=== PATIENT | female | born 1995 | race Caucasian/White ===

== ENCOUNTER 2017-05-25 16:58 | Observation (INO) | payer BC, MEDICAID ==
[~2017-05-25] VITALS: Ht 152.4 cm; Wt 82.6 kg
[~2017-05-25 16:58] MED LIST: AMOXICILLIN500 M2 PO; CRYSELLE 30 MCG1 TAB PO; IRON TABLETS325 MG PO; LABETALOL 100M100 M1 PO; MACROBID 100MG100 MG PO; NAPROSYN500 M1 PO; PRENATAL PLUS1 TA1 PO
[2017-05-25 17:05] VITALS: BP 127/82
[2017-05-25 17:56] LABS: URINE BILIRUBIN - DIPSTICK NEGATIVE (NEG); URINE BLOOD 1+ (NEG)
[2017-05-25 18:21] LABS: AMPHETAMINES/METAMPHETAMINES NEGATIVE ng/mL (<1000)
[2017-05-25 18:22] LABS: URINE SQUAMOUS CELLS 20-50 #/hpf (0-5)
[2017-05-25 19:29] LABS: HEMOGLOBIN 11.9 g/dL (12.2-16.2); LYMPH # 3.3 K/mm3 (0.7-4.5); LYMPH % 28.3 % (10-50.0)
[2017-05-25 22:42] VITALS: BP 129/89
[2017-05-26 08:05] VITALS: BP 116/84
--- NOTE | 2017-05-26 08:29 | ACUTE CARE PROGRESS NOTE (QUA) ---
Progress Notes Subjective Date 05/26/17 Time 0826 Note She seems to be doing a little better this morning. Her blood pressure is 120/ 84. She denies any headache, scotomata or epigastric pain. She is taking labetalol 100 mg twice a day. We are doing a 24-hour urine. Her blood work is all normal except for her uric acid which is elevated at 7.2. Her urine dip for protein is negative. Patient/family reports: feeling better, no complaints Objective Findings Last VS-Temp:98.0 B/P:129/89 Pulse:75 Resp:18 SaO2: Last weight lbs:182 oz:0 K.555 Method:Digital Scales Exam General appearance: normal appearance, alert, awake, no acute distress Neuro: normal exam, normal reflexes, no clonus Reviewed: vital signs, lab results Assessment/Plan Problem List 1. induced hypertension, antepartum Patient condition Stable Plan: continue current care, initiate discharge plan This inpt stay is expected to cross 2 MNs from start of care No Comments: Her uric acid is slightly elevated we are waiting a 24 urine. She will follow up in my office in 48 hours for another blood pressure check. We will plan to send her home this morning. We will continue her 24-hour urine. I suspect that she will be induced in the next few days. She was given the warning symptoms of worsening presents induced hypertension. at 0818
--- NOTE | 2017-05-26 08:32 | Discharge Summary ---
Discharge Summary Admission date: 05/25/17 Discharge date: 05/26/17 Discharge diagnoses: Labile hypertension, mild -induced hypertension Clinical note: She is a 22-year-old 1 para 0 who was 37 weeks gestational age. She had elevated blood pressure in Dr. Oden's office and was admitted overnight for observation. Course in hospital: She was observed overnight and I elected to stop her magnesium sulfate since her blood pressure was 120 over 80s. She denies any headache, scotomata or epigastric pain. She is taking labetalol 100 mg twice a day. I suspect she has some labile hypertension with some underlying induced hypertension as well. We are awaiting a 24-hour urine. Her uric acid was elevated at 7.2 by the rest of her labs were completely normal. Her reflexes are normal and there is no clonus. Plans for ongoing care: We will plan to send her home on bed rest for the next couple of days. I'll see her in the office in 48 hours time. She will continue with her labetalol at home. She was given the warning symptoms of worsening -induced hypertension. We will plan to deliver her within the next week. Discharge medications She'll continue with her vitamins and iron. She will continue with labetalol 100 mg twice a day. DC/follow-up instructions She was given instructions to follow-up with me in 48 hours time. She was given instructions to remain on bedrest. Condition at discharge Stable and improved at 0831
--- OUTSIDE RECORDS SUMMARY | 2017-06-26 17:14 | External Medical Summary Rpt ---
Author Author , ALEXI TRUONG Address Unknown Phone [email or web address] Care Team Providers Care Concert Manager Name Role Phone DRAKE, DRAKE Unavailable Unavailable [facility] Unavailable Unavailable DEPARTMENT, [facility] DEPARTMENT [facility] Unavailable Unavailable DEPARTMENT, [facility] DEPARTMENT [facility] Unavailable Unavailable HOSPITAL, [facility] MISA, MISA Unavailable Unavailable [id number], Unavailable Unavailable [id number] JR ANAT, ANAT, Unavailable Unavailable JR THOMPSON TIN, JAY Unavailable Unavailable [facility] Un[facility] Unavailable INC, [facility] GLADIS NAN, GLADIS Unavailable Unavailable [facility] Un[facility] Unavailable [facility], [facility] LYND LEANNA, LYND LEANNA Unavailable Unavailable [facility] Unavailable Unavailable [facility] Unavailable Unavailable [facility] Unavailable Unavailable SERVICES, [facility] KATINA DMD ROMAN CATHOLIC, KATINA Unavailable Unavailable DMD ROM[facility] CATH[facility] KATINA DMD ROMAN CATHOLIC, KATINA Unavailable Unavailable DMD DANYELLE LUNA, Unavailable Unavailable DANYELLE KULKARNI [facility] Unavailable Unavailable URGENT TREAT, [facility], Unavailable Unavailable PLL, [facility], [facility] MONICA IFRAH, MONICA IFRAH Unavailable Unavailable [facility] Un[facility], [facility] Unavailable Unavailable [facility] Unavailable Unavailable [facility] Unavailable Unavailable [facility] Unavailable Unavailable DARLING FRANCO, SALVADOR, Unavailable Unavailable DARLING Last [facility], Unavailable Unavailable [facility] Purpose Continuity of Care Document - 02-21-2008 through 2016 Problems Code Diagnosis DOS Provider Status [id number] OTHER SPEC 12-25-2016 [facility] COND 2ND TRIMESTER R1032 LEFT LOWER 12-25-2016 [place] Z3A15 15 WEEKS 12-25-2016 [place] R102 PELVIC AND 10-01-2016 [facility] N940 MITTELSCHME 12-11-2016 [facility] M2012 ROSCOEUX 03-31-2016 [facility] LEFT FOOT [id number] PAIN IN 03-31-2016 [place] [facility] H5202 HYPERMETROP 03-06-2016 [facility] EYE [facility] Q28316 UNSPECIFIED 03-06-2016 [facility] ASTIGMATISM [facility] BILATERAL E162 HYPOGLYCEMI 03-03-2016 [facility] UNSPECIFIED URGENT TREAT M2011 HALLUX 03-03-2016 [facility] ACQUIRED URGENT RIGHT FOOT TREAT R42 DIZZINESS 03-03-2016 [facility] GIDDINESS URGENT TREAT R55 SYNCOPE AND 03-03-2016 [facility] URGENT TREAT H5213 MYOPIA 02-28-2016 [facility] B[facility] 56196 REFLUX 08-28-2014 [facility] ESOPHAGITIS 8409 SPRAIN&STRA 07-20-2013 [facility] IN UNSPEC EMERGENCY SITE SERVICES SHOULDER&UP PER ARM V2549 SURVEILLANC 06-21-2013 [facility] E OTH PREV HEALTH PRSC DEPARTMENT CONTRACEPT METHOD 462 ACUTE 06-02-2013 [facility] PHARYNGITIS 4779 ALLERGIC 06-02-2013 [facility] RHINITIS CAUSE UNSPECIFIED V655 PERSON 05-23-2013 [facility] W/FEARED HEALTH COMPLAINT DEPARTMENT WHOM NO DX WAS MADE 4660 ACUTE 05-19-2013 [facility] BRONCHITIS V1582 PERS HX 05-03-2013 [facility] TOBACCO USE HEALTH PRESENTING DEPARTMENT HAZARDS HEALTH V2541 SURVEILLANC 05-03-2013 [facility] E PREV HEALTH PRESCRIBED DEPARTMENT CONTRACEPT PILL V2689 OTHER 05-03-2013 [facility] SPECIFIED HEALTH PROCREATIVE DEPARTMENT MANAGEMENT V8530 BODY MASS 05-03-2013 [facility] INDEX HEALTH 30.0-30.9 DEPARTMENT ADULT 9953 ALLERGY 01-17-2013 [facility] UNSPECIFIED NOT ELSEWHERE CLASSIFIED 5990 URINARY 12-06-2012 [facility] TRACT INFECTION SITE NOT SPECIFIED 2724 OTHER AND 05-14-2012 [facility] UNSPECIFIED [facility] HYPERLIPIDE FRANKIE 89642 OTHER 05-14-2012 [facility] V202 ROUTINE 05-11-2012 [facility] CHILD [facility]ALTH CHECK V2501 GENERAL 04-13-2012 [facility] COUNSELING HEALTH PRESCRIPTIO DEPARTMENT N ORAL CONTRACEPTS 2662 OTHER 01-21-2011 [facility] B-COMPLEX HEALTH DEFICIENCIE DEPARTMENT S V069 NEED PROPH 01-21-2011 [facility] VACCINATION HEALTH W/UNSPEC DEPARTMENT COMB VACCINE 5210 DENTAL 12-05-2010 KATINA DMD CARIES ROMAN CATHOLIC 6260 ABSENCE OF 03-21-2009 SALVADOR MENSTRUATIO DARLING Last N 7061 OTHER ACNE 12-13-2008 DARLING FRANCO 0340 STREPTOCOCC 12-05-2008 ESTRELLITA [place] [facility] N39.0 URINARY TRACT INFECTION, SITE NOT SPECIFIED N94.0 MITTELSCHME RZ Medications Na ND Rx Da Fi Fi Am Da Di Ph RX Ph St me C No te ll ll ou ys ag ar # ys at rm s nt no ma ic us Or Da si cy ia de te s n re d NI 47 07 07 28 14 00 CA Ac TR 78 -0 -2 .0 00 RL ti OF 10 1- 1- 00 00 IS ve UR 30 20 20 77 LE AN 30 17 [address] IN UG S MO NO -M CR 10 0 MG PE 57 05 06 30 8 00 WA Ac NI 23 -3 -2 .0 00 L- ti CI 70 1- 3- 00 07 MA ve LL 04 20 20 41 RT IN 10 17 17 18 1 39 PH VK AR MA 50 CY 0 MG #4 93 TA BL ET IB 53 03 03 0 30 8 WI 36 WE Ac UP 74 -1 -1 .0 LS 58 LL ti RO 60 8- 8- 00 ON 02 S ve FE 46 20 20 CH N [address] AM 60 5 UG BE 0 RS MG IN C MO TA RG BL AN ET CL 63 03 03 0 56 28 WI 36 WE Ac IN 30 -0 -0 .0 LS 41 LL ti DA 40 3- 3- 00 ON 12 S ve MY 69 20 20 CH CI [address] AM N 1 UG BE HC RS L IN 15 C MO 0 RG MG AN CA PS UL E 00 02 02 0 15 4 WI 36 WE Ac 59 -1 -1 .0 LS 18 LL ti 10 1- 1- 00 ON 44 S ve 38 20 20 CH [address] AM 5 UG BE RS IN C MO RG AN PA 68 02 02 0 15 4 WI 36 WE Ac OM 38 -1 -1 .0 LS 18 LL ti ET 20 1- 1- 00 ON 40 S ve SMITH 04 20 20 CH ZI [address] AM NE 1 UG BE RS 25 IN C MO MG RG AN TA BL ET [place] 60 02 02 0 15 5 WI [address] 43 -1 -1 0. LS 18 LL ti AT 20 1- - 00 ON 41 S ve IN 53 20 20 0 CH [address] AM 10 6 UG BE 0, RS 00 IN 0 C MO UN RG IT AN /M L MAGAÑA SP AM 65 02 02 0 21 7 WI 36 WE Ac OX 86 -1 -1 .0 LS 18 LL ti IC 20 1- - 00 ON 42 S ve IL 01 20 20 CH LI [address] AM N 5 UG BE 50 RS 0 IN MG C MO RG CA AN PS UL E ME 59 02 02 0 21 6 WI 36 WE Ac TH 74 -1 -1 .0 LS 18 LL ti YL 60 1- 00 ON 43 S ve PA 00 20 20 CH ED [address] AM NI 3 UG BE SO RS LO IN NE C MO 4 RG AN MG DO SE PK 00 02 02 0 15 4 WI 36 WE Ac 59 -1 -1 .0 LS 18 LL ti 10 ON 44 S ve 38 20 20 CH [address] AM 5 UG BE RS IN C MO RG AN DO 00 03 04 00 60 30 WI 26 WE Ac XY 14 -2 -[address] ti CY 33 6- 9- 00 ON 84 ve CL 14 20 20 MU IN [address] RR E 5 UG AY HY D CL IN AT C E 10 0 MG CA P 00 03 04 00 50 10 WI 26 WE Ac 06 -2 -0 [address] ti 60 6- 9- 00 ON 83 ve 49 20 20 MU [address] RR 0 UG AY D IN C AM 66 03 03 00 20 10 WI 26 FE Ac OX 68 -1 -2 .0 LS 38 RR ti -C 51 8- 6- 00 ON 19 EL ve LA 00 20 20 L V [address] JA 87 1 UG ME 5- S 12 IN L 5 C MG TA BL ET PE 00 12 01 59 7 CV 49 WE Ac RM 47 -1 -[address] ti ET 25 4- 5- 00 PH 78 ve HR 24 20 20 AR MU IN 26 08 09 MA RR 7 CY AY 1% D #3 LO 01 TI 6 ON PE 00 12 01 00 59 7 CV 49 WE Ac RM 47 -1 -[address] ti ET 25 4- 1- 00 PH 78 ve HR 24 20 20 AR MU IN 26 08 09 MA RR 7 CY AY 1% D #3 LO 01 TI 6 ON ER 45 10 11 00 46 17 WI 24 WE Ac YT 80 -2 -0 [address] ti HR 20 1- 7- 00 ON 41 ve OM 08 20 20 MU YC [address] RR IN 6 UG AY -B D EN IN ZO C YL GE L 00 10 11 00 60 30 WI 24 WE Ac 07 -2 -0 [address] ti 46 1- 7- 00 ON 43 ve 32 20 20 MU [address] RR 3 UG AY D IN C 00 11 09 03 50 25 WI 20 No Ac 06 -1 -2 .0 LS 99 t ti 60 2- 6- 00 ON 70 Av ve 49 20 20 ai [address] la 0 UG bl e IN C 00 11 07 02 50 25 WI 20 No Ac 06 -1 -0 .0 LS 99 t ti 60 2- 3- 00 ON 70 Av ve 49 20 20 ai [address] la 0 UG bl e IN C TE 00 11 07 02 60 30 WI 20 No Ac TR 17 -1 -0 .0 LS 99 t ti AC 22 2- 3- 00 ON 69 Av ve YC 40 20 20 ai LI [address] la NE 0 UG bl e 50 IN 0 C MG CA PS UL E Results Labs Lab Lab Date Result Refere Interp Status Commen Order Detail nces retati t Range on Urinalysis dipstick W Reflex Microscopic panel in Urine (06-01-2017 08:20) Bacteri OCC O complet a 017 ed [Presen 08:20 ce] in Urine sedimen t by Light microsc opy Erythro NONE 0 complet cytes 017 ed [Presen 08:20 ce] in Urine sedimen t by Light microsc opy Epithel OCC 0#/hp complet ial 017 f - ed cells.s 08:20 5#/hp quamous f [Presen ce] in Urine sedimen t by Microsc opy high power field Urinalysis dipstick W Reflex Microscopic panel in Urine (06-01-2017 08:20) Appeara CLEAR CLEAR complet nce of 017 ed Urine 08:20 Bilirub NEGATIV NEG complet in 017 E ed [Presen 08:20 ce] in Urine by Test strip Erythro NEGATIV NEG complet cytes 017 E ed [Presen 08:20 ce] in Urine Color STRAW YELLOW complet of 017 ed Urine 08:20 Ketones NEGATIV NEG complet 017 E ed [Presen 08:20 ce] in Urine by Automat ed test strip Mucus NEGATIV NEG complet [Presen 017 E ed ce] in 08:20 Urine sedimen t by Light microsc opy Nitrite NEGATIV NEG complet 017 E ed [Presen 08:20 ce] in Urine by Test strip Urobili 0.2 NEG complet nogen 017 ed [Presen 08:20 ce] in Urine by Test strip Urinalysis dipstick W Reflex Microscopic panel in Urine (06-01-2017 06:39) Bacteri 4+ O complet a 017 ed [Presen 06:39 ce] in Urine sedimen t by Light microsc opy Epithel 5-10 0#/hp complet ial 017 f - ed cells.s 06:39 5#/hp quamous f [Presen ce] in Urine sedimen t by Microsc opy high power field Leukocy 10-20 O complet remigio 017 wbc/hpf ed [#/volu 06:39 me] in Urine Urinalysis dipstick W Reflex Microscopic panel in Urine (06-01-2017 06:39) Appeara SL CLEAR complet nce of 017 CLOUDY ed Urine 06:39 Bilirub NEGATIV NEG complet in 017 E ed [Presen 06:39 ce] in Urine by Test strip Erythro NEGATIV NEG complet cytes 017 E ed [Presen 06:39 ce] in Urine Color DK YELLOW complet of 017 YELLOW ed Urine 06:39 Ketones NEGATIV NEG complet 017 E ed [Presen 06:39 ce] in Urine by Automat ed test strip Mucus NEGATIV NEG complet [Presen 017 E ed ce] in 06:39 Urine sedimen t by Light microsc opy Nitrite NEGATIV NEG complet 017 E ed [Presen 06:39 ce] in Urine by Test strip Urobili 0.2 NEG complet nogen 017 ed [Presen 06:39 ce] in Urine by Test strip Drugs identified in Urine by Screen method (06-01-2017 06:39) Ampheta NEGATIV <1000 complet mine 017 E ed [Presen 06:39 ce] in Urine by Screen method 11-Hydr NEGATIV <50 complet oxy 017 E ed delta-9 06:39 tetrahy drocann abinol [Presen ce] in Unspeci fied specime n Blood type & Indirect antibody screen panel in Blood (06-01-2017 04:30) Blood NEGATIV NEGATIV complet group 017 E E ed antibod 04:30 y screen [Presen ce] in Serum or Plasma Rh POSITIV complet [Type] 017 E ed in 04:30 Blood ABO O complet group 017 ed [Type] 04:30 in Blood Urinalysis dipstick W Reflex Microscopic panel in Urine (05-25-2017 17:50) Bacteri 3+ O complet a 017 ed [Presen 17:50 ce] in Urine sedimen t by Light microsc opy Erythro 10-20 0 complet cytes 017 ed [Presen 17:50 ce] in Urine sedimen t by Light microsc opy Epithel 20-50 0#/hp complet ial 017 f - ed cells.s 17:50 5#/hp quamous f [Presen ce] in Urine sedimen t by Microsc opy high power field Leukocy 10-20 O complet remigio 017 wbc/hpf ed [#/volu 17:50 me] in Urine Drugs identified in Urine by Screen method (05-25-2017 17:50) Ampheta NEGATIV <1000 complet mine 017 E ed [Presen 17:50 ce] in Urine by Screen method 11-Hydr NEGATIV <50 complet oxy 017 E ed delta-9 17:50 tetrahy drocann abinol [Presen ce] in Unspeci fied specime n Urinalysis dipstick W Reflex Microscopic panel in Urine (05-25-2017 17:50) Appeara SL CLEAR complet nce of 017 CLOUDY ed Urine 17:50 Bilirub NEGATIV NEG complet in 017 E ed [Presen 17:50 ce] in Urine by Test strip Erythro 1+ NEG Abnorma complet cytes 017 l ed [Presen 17:50 ce] in Urine Color YELLOW YELLOW complet of 017 ed Urine 17:50 Ketones NEGATIV NEG complet 017 E ed [Presen 17:50 ce] in Urine by Automat ed test strip Mucus 2+ NEG Abnorma complet [Presen 017 l ed ce] in 17:50 Urine sedimen t by Light microsc opy Nitrite NEGATIV NEG complet 017 E ed [Presen 17:50 ce] in Urine by Test strip Urobili 0.2 NEG complet nogen 017 ed [Presen 17:50 ce] in Urine by Test strip Blood type & Indirect antibody screen panel in Blood (05-14-2017 17:25) Blood 05-14- NEGATIV NEGATIV complet group 017 E E ed antibod 17:25 y screen [Presen ce] in Serum or Plasma Rh POSITIV complet [Type] 017 E ed in 17:25 Blood ABO 05-14-2 O complet group 017 ed [Type] 17:25 in Blood Drugs identified in Urine by Screen method (05-14-2017 16:51) Ampheta 05-14-2 NEGATIV <1000 complet mine 017 E ed [Presen 16:51 ce] in Urine by Screen method 11-Hydr 05-14-2 NEGATIV <50 complet oxy 017 E ed delta-9 16:51 tetrahy drocann abinol [Presen ce] in Unspeci fied specime n Drugs identified in Urine by Screen method (03-20-2017 10:15) Ampheta 03-20-2 NEGATIV <1000 complet mine 017 E ed [Presen 10:15 ce] in Urine by Screen method 11-Hydr 2 NEGATIV <50 complet oxy 017 E ed delta-9 10:15 tetrahy drocann abinol [Presen ce] in Unspeci fied specime n Urinalysis dipstick W Reflex Microscopic panel in Urine (03-20-2017 10:15) Bacteri 4+ O complet a 017 ed [Presen 10:15 ce] in Urine sedimen t by Light microsc opy Mucus 3+ OCC complet [Presen 017 ed ce] in 10:15 Urine sedimen t by Light microsc opy Erythro OCC 0 complet cytes 017 ed [Presen 10:15 ce] in Urine sedimen t by Light microsc opy Epithel 20-50 0#/hp complet ial 017 f - ed cells.s 10:15 5#/hp quamous f [Presen ce] in Urine sedimen t by Microsc opy high power field Leukocy 10-20 O complet remigio 017 wbc/hpf ed [#/volu 10:15 me] in Urine Urinalysis dipstick W Reflex Microscopic panel in Urine (03-20-2017 10:15) Appeara SL CLEAR complet nce of 017 CLOUDY ed Urine 10:15 Bilirub NEGATIV NEG complet in 017 E ed [Presen 10:15 ce] in Urine by Test strip Erythro TRACE-I NEG complet cytes 017 NTACT ed [Presen 10:15 ce] in Urine Color YELLOW YELLOW complet of 017 ed Urine 10:15 Ketones NEGATIV NEG complet 017 E ed [Presen 10:15 ce] in Urine by Automat ed test strip Mucus 1+ NEG Abnorma complet [Presen 017 l ed ce] in 10:15 Urine sedimen t by Light microsc opy Nitrite NEGATIV NEG complet 017 E ed [Presen 10:15 ce] in Urine by Test strip Urobili 0.2 NEG complet nogen 017 ed [Presen 10:15 ce] in Urine by Test strip Glucose [Presence] in Urine by Test strip --1 hour post 75 g glucose PO (03-01-2017 15:47) Glucose NEGATIV complet 017 E ed [Presen 15:47 ce] in Urine by Test strip Treponema pallidum IgG Ab [Presence] in Serum by Immunoassay (05-09-2013 16:30) Trepone NON-GIA complet ma 013 CTIVE ed pallidu 16:30 m IgG Ab [Presen ce] in Serum by Immunoa ssay Treponema pallidum IgG Ab [Presence] in Serum by Immunoassay (05-09-2013 16:30) COLLECT C3974 complet OR 013 ed 16:30 ETHNICI WHITE complet TY 013 ed 16:30 PURPOSE DIAGNOS complet OF 013 TIC ed EXAM 16:30 SPECIME BLOOD complet N 013 ed SOURCE 16:30 CHART NA complet NUMBER 013 ed 16:30 Trepone Pending complet ma 013 ed pallidu 16:30 m IgG Ab [Presen ce] in Serum by Immunoa ssay CHLAMYDIA AND GONORRHEA TESTING (05-03-2013 09:10) Chlamyd POSITIV complet ia 013 E ed trachom 09:10 atis rRNA [Presen ce] in Unspeci fied specime n by Probe & target amplifi cation method Neisser NEGATIV complet ia 013 E ed gonorrh 09:10 oeae rRNA [Presen ce] in Unspeci fied specime n by Probe & target amplifi cation method CHLAMYDIA AND GONORRHEA TESTING (05-03-2013 09:10) COLLECT C3819 complet OR 013 ed 09:10 ETHNICI WHITE, complet TY 013 NON-HIS ed 09:10 PANIC KIT 08-19-2 complet EXPIRAT 013 013 ed ION 09:10 DATE SYMPTOM NO complet S 013 ed 09:10 REASON REVISIT complet FOR 013 /ANNUAL ed REQUEST 09:10 FAMILY PLANNIN G VISIT SPECIME URINE complet N 013 ed SOURCE 09:10 PREGNAN NO complet T 013 ed 09:10 CHART N/A complet NUMBER 013 ed 09:10 Chlamyd Pending complet ia 013 ed trachom 09:10 atis rRNA [Presen ce] in Unspeci fied specime n by Probe & target amplifi cation method Neisser Pending complet ia 013 ed gonorrh 09:10 oeae rRNA [Presen ce] in Unspeci fied specime n by Probe & target amplifi cation method CHLAMYDIA AND GONORRHEA TESTING (04-13-2012 15:40) Chlamyd NEGATIV complet ia 012 E ed trachom 15:40 atis rRNA [Presen ce] in Unspeci fied specime n by Probe & target amplifi cation method Neisser NEGATIV complet ia 012 E ed gonorrh 15:40 oeae rRNA [Presen ce] in Unspeci fied specime n by Probe & target amplifi cation method CHLAMYDIA AND GONORRHEA TESTING (04-13-2012 15:40) COLLECT C3819 complet OR 012 ed 15:40 ETHNICI WHITE, complet TY 012 NON-HIS ed 15:40 PANIC KIT 06/2012 complet EXPIRAT 012 ed ION 15:40 DATE SYMPTOM NO complet S 012 ed 15:40 REASON REVISIT complet FOR 012 /ANNUAL ed REQUEST 15:40 FAMILY PLANNIN G VISIT SPECIME URINE complet N 012 ed SOURCE 15:40 PREGNAN NO complet T 012 ed 15:40 CHART N/A complet NUMBER 012 ed 15:40 Chlamyd Pending complet ia 012 ed trachom 15:40 atis rRNA [Presen ce] in Unspeci fied specime n by Probe & target amplifi cation method Neisser Pending complet ia 012 ed gonorrh 15:40 oeae rRNA [Presen ce] in Unspeci fied specime n by Probe & target amplifi cation method Procedures [place] [address] [place] [facility] 7 MEDICAL UTERUS IMAGING LIMITED ASS 1/> [place] [address] [place] [facility]KE TRANSVAGI 7 MEDICAL NAL IMAGING ASS RADEX 34917 [facility] COMPLETE INC INC MINIMUM 3 VIEWS FRAMES V2020 [facility] PURCHASES 6 [place] [facility] SPHERE V2100 [facility] SINGLE 6 [place] [facility] [place] [facility] 4.00 PER LENS RADEX 19101 [facility] COMPLETE INC INC MINIMUM 3 VIEWS OPHTH 10064 [facility] 6 XM&EVAL COMPRE NEW PT 1/> VST SERVICES 56355 [facility] PROVIDED 3 OFFICE OTH/THN REG SCHED HOURS IAADIADOO 34877 [facility] 3 STREPT[place] CCUS GROUP A IAADIADOO 49686 [facility] 3 STREPTOCO CCUS GROUP A CONTRACEP A4267 [facility] TIVE 3 [facility] MALE EACH T T CONTRACEP S4993 [facility] [facility] [facility] 3 [facility] DE[facility] CONTROL T T IADNA 26127 [facility] [facility] CHLAMYDIA 3 MT [facility] IS T T AMPLIFIED PROBE TQ IADNA 00127 [place] NEISSERIA 3 MT Event[facility] AE T T AMPLIFIED PROBE TQ SERVICES 60065 [facility] PROVIDED 3 OFFICE OTH/THN REG SCHED HOURS URNLS DIP 13453 [facility] 3 STICK/TAB LET RGNT NON-AUTO W/O MICRSCP COMPREHEN 47887 ESTRELLITA HARO SIVE 2 [facility] PANEL LIPID 22632 [facility] [place] PANEL 2 [facility] BLOOD 51920 [facility] COUNT 2 [facility] AUTO&AUTO DIFRNTL WBC COLLECTIO 19420 ESTRELLITA HARO N VENOUS 2 [facility] VENIPUNCT URE IADNA 30419 [facility] NEISSERIA 2 [facility] AE T T AMPLIFIED PROBE TQ CONTRACEP S4993 [place] LYND LEANNA TIVE 2 [facility] DE[facility] CONTROL T IADNA 50217 [facility] CHLAMYDIA 2 [facility] DEPARTMEN IS T T AMPLIFIED PROBE TQ IAADIADOO 27661 [facility] 1 STREPTOCO CCUS GROUP A IADNA 25554 [place] NEISSERIA 1 [facility] AE T T AMPLIFIED PROBE TQ IM ADM 78504 [place] PRQ ID 1 [facility] SUBQ/IM NJXS 1 [facility] VACCINE T T CONTRACEP S4993 [place] TIVE 1 [facility] CONTROL T T IADNA 86498 [facility] CHLAMYDIA 1 [facility] [place] IV D9242 KATINA DMD KATINA DMD CONSCIOUS 1 ROMAN CATHOLIC ROMAN CATHOLIC SEDATION/ ANALG - EA ADD 15 MINUTES IV D9242 KATINA DMD KATINA DMD CONSCIOUS 1 ROMAN CATHOLIC ROMAN CATHOLIC SEDATION/ ANALG - EA ADD 15 MINUTES IAADIADOO 42348 [facility] 0 [place] CCUS GROUP A CONTRACEP S4993 [place] TIVE 0 [facility] CONTROL T T CHOLESTER 79479 [place] OL 0 [facility] SERUM/WHO LE BLOOD [facility] TOTAL T T GLUC BLD 83620 [place] GLUC MNTR 0 [facility] DEV CLEARED [facility] DEPARTMEN FDA SPEC T T HOME USE BLOOD 63332 [place] COUNT 0 [facility] HEMOGLOBI N DEPARTMEN DEPARTMEN T T IADNA 52733 [place] CHLAMYDIA 0 [facility]AT [facility] DEPARTMEN IS T T AMPLIFIED PROBE TQ IADNA 29218 [place] NEISSERIA 0 [facility]E [facility] DEPARTMEN AE T T AMPLIFIED PROBE TQ URINE 56808 [facility] [place] 9 [facility]ALTH [facility] TEST CENTRAL VISUAL BANK ACCT DEPARTMEN COLOR T CMPRSN METHS CONTRACEP A4267 [facility] [place] TIVE 9 HEALTH [facility] SUPPLY CENTRAL CONDOM BANK ACCT DEPARTMEN MALE EACH T CONTRACEP S4993 [facility] [place] TIVE 9 HEALTH [facility] HEALTH PILLS FOR SOMERSET BANK ACCT DEPARTMEN CONTROL T URINE 61419 [facility], 9 [place] Last TEST VISUAL COLOR CMPRSN METHS IAADIADOO 33061 [place] [address] [facility] CCUS GROUP A URINE 11103 [facility], 8 [place] Last TEST VISUAL COLOR CMPRSN METHS Encounters Encounter Start End Date Code Location Performer Type Date EMERGENCY 02966 STAN COP[place]A, 6 6 PHYSICIAN [facility] T VISIT HIGH/URGE NT SEVERITY [facility] - 6 6 [facility] - 6 6 [facility] T OFFICE 14884 DAVIAN GRIFFITH OUTPATIEN 6 6 [facility] 30 URGENT MINUTES TREAT OFFICE 25902 [facility] OUTPATIEN 4 4 T VISIT 15 MINUTES EMERGENCY 21212 YAZMIN THOMPSON 3 3 EMERGENCY [facility] T VISIT MODERATE SEVERITY OFFICE 93372 [facility] 15 DEPARTMEN DEPARTMEN MINUTES T T OFFICE 45746 [facility] 3 3 [facility] 10 [facility] DEPART[facility] MINUTES T T OFFICE 90613 [facility] OUTPATIEN 3 3 T VISIT 15 MINUTES PERIODIC 69256 [facility] PREVENTIV 3 3 [facility] EST [facility] T [facility] 19661 [facility] OUT[facility] 3 3 T NEW 30 MINUTES [facility] [place] - 2 2 [facility] T PERIODIC 69369 [facility] PREVENTIV 2 2 E MED EST PATIENT 12-17YRS PERIODIC 81427 [facility] 2 [facility]17[facility] T OFFICE 32950 [facility] OUT[facility] 1 1 T VISIT 15 MINUTES PERIODIC 06974 [facility] 1 [facility]17[facility] T OFF[facility] 24193 [facility] OUT[facility] 0 0 T NEW 30 MINUTES PERIODIC 18407 [facility] 12-17Y[facility] T T PERIODIC 84351 [facility] PREVENTIV 0 0 [place] Last E MED EST PATIENT 12-17YRS OFFICE 69792 [facility] 15 BANK ACCT DEPARTMEN MINUTES T OFFICE 69688 [facility] 9 9 [place] Last T VISIT 15 MINUTES OFFICE 11597 [facility] 9 9 [place] Last T VISIT 15 MINUTES EMERGENCY [address] [place] 9 9 [facility] T VISIT LOW/MODER SEVERITY EMERGENCY 30929 [facility], 9 9 [facility] VISIT PHYS INC MODERATE SEVERITY [facility]OSP[facility] [place] - 9 9 [facility] T OFFICE 52830 [facility] 8 8 [place] Last T VISIT 15 MINUTES OFFICE 85620 [facility] 8 8 [place] Last T VISIT 15 MINUTES
--- OUTSIDE RECORDS SUMMARY | 2017-06-26 17:14 | External Medical Summary Rpt ---
Author Author , ALEXI TRUONG Address Unknown Phone [email or web address] Care Team Providers Care Veterinary Practice Manager Name Role Phone DRAKE, DRAKE Unavailable Unavailable [facility] Unavailable Unavailable DEPARTMENT, [facility] DEPARTMENT [facility] Unavailable Unavailable DEPARTMENT[facility] DEPARTMENT [facility] Unavailable Unavailable HOSPITAL, [facility] MISA, MISA Unavailable Unavailable [id number], Unavailable Unavailable [id number] JR ANAT, ANAT, Unavailable Unavailable JR THOMPSON TIN, JAY Unavailable Unavailable [facility] Unavailable Unavailable INC, [facility] GLADIS NAN, GLADIS Unavailable Unavailable [facility] Unavailable [facility], [facility] LYND LEANNA, LYND LEANNA Unavailable Unavailable [facility] Unavailable Unavailable [facility] Unavailable Unavailable [facility] Unavailable Unavailable SERVICES, [facility] KATINA DMD JUDAISM, KATINA Unavailable Unavailable DMD JUDAISM KATINA DMD JUDAISM, KATINA Unavailable Unavailable DMD DANYELLE LUNA, Unavailable Unavailable DANYELLE KULKARNI [facility] Unavailable Unavailable URGENT TREAT, [facility], Unavailable Unavailable PLL, [facility], [facility] MONICA IFRAH, MONICA IFRAH Unavailable Unavailable [facility] Unavailable Un[facility], [facility], [facility] Unavailable Unavailable [facility] Unavailable Unavailable [facility] Unavailable Unavailable [facility] Unavailable Unavailable [place] FRANCO, SALVADOR, Unavailable Unavailable [place] Last [facility], Unavailable Unavailable [facility] Purpose Continuity of Care Document - 02-21-2008 through 2016 Problems Code Diagnosis DOS Provider Status [id number] OTHER SPEC 12-25-2016 [facility] COND 2ND TRIMESTER R1032 LEFT LOWER 12-25-2016 [facility] [facility] Z3A15 15 WEEKS 12-25-2016 [facility] [facility] R102 PELVIC AND 10-01-2016 [facility] N940 MITTELSCHME 12-11-2016 [facility] M2012 CERESUX 03-31-2016 [facility] LEFT FOOT H84402 PAIN IN 03-31-2016 [place] [facility] H5202 HYPERMETROP 03-06-2016 [facility] [place] LEFT EYE [facility] W03280 UNSPECIFIED 03-06-2016 [facility]MAT[facility] BILATERAL E162 HYPOGLYCEMI 03-03-2016 DAVIAN Chapman [facility] UNSPECIFIED URGENT TREAT M2011 HALLUX 03-03-2016 [facility] ACQUIRED URGENT RIGHT FOOT TREAT R42 DIZZINESS 03-03-2016 [facility] GIDDINESS URGENT TREAT R55 SYNCOPE AND 03-03-2016 DAVIAN COLLAPSE [facility] URGENT TREAT H5213 MYOPIA 02-28-2016 YAZMIN BILATERAL 78350 REFLUX 08-28-2014 [facility] ESOPHAGITIS 8409 SPRAIN&STRA [...] SITE NOT SPECIFIED 2724 OTHER AND 05-14-2012 [facility] UNSPECIFIED [facility] HYPERLIPIDE FRANKIE 29713 OTHER 05-14-2012 PSYCHIATRIC V202 ROUTINE 05-11-2012 [facility] INFANT OR CHILD HEALTH CHECK V2501 GENERAL 04-13-2012 [facility] [facility] PRESCRIPTIO DEPARTMENT N ORAL CONTRACEPTS 2662 OTHER 01-21-2011 [place] B-COMPLEX HEALTH DEFICIENCIE DEPARTMENT S V069 NEED PROPH 01-21-2011 [place] [facility] VACCINATION [facility]ALTH W/UNSPEC DEPARTMENT COMB VACCINE 5210 DENTAL 12-05-2010 KATINA DMD CARIES JUDAISM 6260 ABSENCE OF 03-21-2009 SALVADOR MENSTRUATIO [place] Last N 7061 OTHER ACNE 12-13-2008 [place] FRANCO 0340 STREPTOCOCC 12-05-2008 ESTRELLITA AL [facility] N39.0 URINARY TRACT INFECTION, SITE NOT SPECIFIED [...] BE RS IN C MO RG AN MO 68 02 02 0 15 4 WI [...] 60 1- 00 ON 43 S ve MO 00 20 20 CH ED 10 11 [...] Procedure [place] [address] [facility] M[facility] 7 MEDICAL UTERUS IMAGING LIMITED ASS 1/> [place] [address] [facility] DRAKE [facility]SVAGI 7 MEDICAL NAL IMAGING ASS RADEX 33436 [facility] COMPLETE INC INC MINIMUM 3 VIEWS FRAMES V2020 [facility] MONICA IFRAH PURCHASES 6 [place] [facility] SPHERE V2100 [facility] MONICA IFRAH SINGLE 6 [place] [facility] [place] [facility] 4.00 PER LENS RADEX 20203 [facility] COMPLETE INC INC MINIMUM 3 VIEWS OPHTH 09700 [facility] 6 XM&EVAL COMPRE NEW PT 1/> VST SERVICES 00357 [facility] PROVIDED 3 OFFICE OTH/THN REG SCHED HOURS IAADIADOO 30446 [facility] 3 STREPTOCO CCUS GROUP A IAADIADOO 22258 [facility] 3 STREPTOCO CCUS GROUP A CONTRACEP A4267 [facility] TIVE 3 ID [facility] ID HEALTH SUPPLY CONDOM [facility]PARTMER[facility] MALE EACH T T CONTRACEP S4993 [place] TIVE 3 ID [facility] ID HEALTH PILLS FOR DEPARTMERIT HEALTH [facility]ANK[facility] DEPARTMERIT HE[facility] RANKIN CONTROL T T IADNA 13095 [place] CHLAMYDIA 3 ID [facility] HEALTH TRACHOMAT DEPARTMERIT [facility]ANK[facility] DEPARTMERIT HE[facility] RANKIN IS T T AMPLIFIED PROBE TQ IADNA 49068 [place] NEISSERIA 3 ID [facility] GONORRHOE DEPARTMERIT HEALTH RANKIN DEPARTMERIT HEALTH RANKIN AE T T AMPLIFIED PROBE TQ SERVICES 98529 [facility] PROVIDED 3 OFFICE OTH/THN REG SCHED HOURS URNLS DIP 80205 [facility] 3 STICK/TAB LET RGNT NON-AUTO W/O MICRSCP COMPREHEN 49705 [facility] HARO SIVE 2 [facility] PANEL LIPID 35232 [place] PANEL 2 [facility] BLOOD 89558 [place] ARNOL[place] COUNT 2 [facility] AUTO&AUTO DIFRNTL WBC COLLECTIO 54601 [facility] HARO N VENOUS 2 [facility] VENIPUNCT URE IADNA 97850 [place] NEISSERIA 2 [facility] DEPARTMEN DEPARTMERIT HEALTH RANKIN AE T T AMPLIFIED PROBE TQ CONTRACEP S4993 [place] LYND LEANNA TIVE 2 [facility] P[facility]S FOR DEPARTMEN CONTROL T IADNA 54643 [place] CHLAMYDIA 2 [facility] TRACHOMAT DEPARTMERIT [facility]ANKIN DEPARTMEN IS T T AMPLIFIED PROBE TQ IAADIADOO 07487 [facility] 1 STREPT[place]O CCUS GROUP A IADNA 34019 [place] NEISSERIA 1 [facility] GONORRHOE DEPARTMERIT HEALTH RANKIN DEPARTMERIT HE[facility] RANKIN AE T T AMPLIFIED PROBE TQ IM ADM 60455 [place] PRQ ID 1 [facility] SUBQ/IM NJXS 1 [facility] VACCINE T T CONTRACEP S4993 [place] TIVE 1 [facility] PILLS FOR DEPARTMERIT HEALTH RANKIN DEPARTMERIT HEALTH RANKIN CONTROL T T IADNA 86156 [place] CHLAMYDIA 1 [facility] TRACHOMAT DEPARTMER[facility]ANKIN DEPARTMERIT HEALTH RANKIN IS [place] IV D9242 KATINA DMD AKTINA DMD CONSCIOUS 1 JUDAISM JUDAISM SEDATION/ ANALG - EA ADD 15 MINUTES IV D9242 KATINA DMD KATINA DMD CONSCIOUS 1 JUDAISM JUDAISM SEDATION/ ANALG - EA ADD 15 MINUTES IAADIADOO 55641 [facility] 0 [place] CCUS GROUP A CONTRACEP S4993 [place] TIVE 0 [facility] PILLS FOR DEPARTMERIT HEALTH RANKIN DEPARTMERIT HE[facility] RANKIN CONTROL T T CHOLESTER 10761 [place] OL 0 [facility] SERUM/WHO LE BLOOD [facility] DEPARTMER[facility] TOTAL T T GLUC BLD 68301 [place] GLUC MNTR 0 [facility] DEV CLEARED DEPARTMERIT [facility] RANKIN DEPARTMEN FDA SPEC T T HOME USE BLOOD 72042 [place] COUNT 0 [facility] HEMOGLOBI N DEPARTMEN DEPARTMEN T T IADNA 76346 [place] CHLAMYDIA 0 [facility] TRACHOMAT DEPARTMERIT HEALTH RANKIN DEPARTMEN IS T T AMPLIFIED PROBE TQ IADNA 75840 [place] NEISSERIA 0 [facility] GONORRHOE DEPARTMERIT HEALTH RANKIN DEPARTMEN AE T T AMPLIFIED PROBE TQ URINE 34783 [facility] [place] 9 HEALTH CO HEALTH TEST CENTRAL VISUAL BANK ACCT DEPARTMEN COLOR T CMPRSN METHS CONTRACEP A4267 [facility] [place] TIVE 9 HEALTH CO HEALTH SUPPLY CENTRAL CONDOM BANK ACCT DEPARTMEN MALE EACH T CONTRACEP S4993 [facility] [place] TIVE 9 HEALTH CO HEALTH PILLS FOR STURGEON BANK ACCT DEPARTMEN CONTROL T URINE 66583 [facility], 9 [place] Last TEST VISUAL COLOR CMPRSN METHS IAADIADOO 98624 [place] 9 [facility] CCUS GROUP A URINE 89563 [facility], 8 [place] Last TEST VISUAL COLOR CMPRSN METHS Encounters Encounter Start End Date Code Location Performer Type Date EMERGENCY 98859 STAN [facility]A, 6 6 PHYSICIAN [facility] S, [facility] T VISIT HIGH/URGE NT SEVERITY [facility]OSPITAL [facility] - 6 6 [facility] MED[facility] - 6 6 [facility] T OFFICE 57003 DAVIAN GRIFFITH OUTPATIEN 6 6 [facility] NAN NEW 30 URGENT MINUTES TREAT OFFICE 63665 [facility] MUR OUTPATIEN 4 4 T VISIT 15 MINUTES EMERGENCY 55910 YAZMIN THOMPSON 3 3 EMERGENCY [facility] T VISIT MODERATE SEVERITY OFFICE 62265 [place] OUTPATIEN 3 3 [facility]ALTH T VISIT 15 DEPARTMEN DEPARTMEN MINUTES T T OFFICE 09255 [place] OUTPATIEN 3 3 [facility] T VISIT 10 [facility] DEPARTMEN MINUTES T T OFFICE 82075 [facility] MUR OUTPATIEN 3 3 T VISIT 15 MINUTES PERIODIC 67261 [place] PREVENTIV 3 3 ID [facility] E MED EST [facility] 18-39 [facility] T T OFFICE 51781 [facility] OUTPATIEN 3 3 T NEW 30 MINUTES HOSPITAL [place] - 2 2 [facility] [place] T PERIODIC 88140 [facility] MUR PREVENTIV 2 2 E MED EST PATIENT 12-17YRS PERIODIC 37425 [place] PREVENTIV 2 2 ID HEALTH ID HEALTH E MED EST [facility] 12-17Y[facility] T T OFFICE 19903 [facility] OUTPATIEN 1 1 T VISIT 15 MINUTES PERIODIC 71577 [place] PREVENTIV 1 1 ID HEALTH ID HEALTH E MED EST [facility] 12[facility]17Y[facility] T T OFFICE 60514 [facility] OUTPATIEN 0 0 T NEW 30 MINUTES PERIODIC 13707 [facility] PREVENTIV 0 0 ID HEALTH ID HEALTH E MED EST [facility] 12-17[facility] T T PERIODIC 90709 [facility], PREVENTIV 0 0 [place] Last E MED EST PATIENT 12-17YRS OFFICE 77022 [facility] 9 9 HEALTH ID HEALTH T VISIT CENTRAL 15 BANK ACCT DEPARTMEN MINUTES T OFFICE 86968 [facility] 9 9 [place] Last T VISIT 15 MINUTES OFFICE 45456 [facility] 9 9 [place] Last T VISIT 15 MINUTES EMERGENCY 31835 [place] 9 9 [facility] T VISIT LOW/MODER SEVERITY EMERGENCY 06870 [facility], 9 9 [facility] T VISIT PHYS INC MODERATE SEVERITY [facility]OSP[facility] [place] - 9 9 [facility] [place] T OFFICE 83213 [facility] 8 8 [place] Last T VISIT 15 MINUTES OFFICE 67489 [facility] 8 8 [place] Last T VISIT 15 MINUTES
--- OUTSIDE RECORDS SUMMARY | 2017-06-26 17:16 | External Medical Summary Rpt ---
Author Author , ALEXI TRUONG Address Unknown Phone [email or web address] Immunization Name Date Rout CVX Reac Dose Comm Prov Is Faci e tion ent ider Refu lity Give sed n Infl 01-1 150 0.5 Hist [facility] No [facility] uenz 4-20 mL oric ART4 ART4 a 17 al 93 93 Quad Info Inj rmat ion - Sour ce Unsp ecif ied HPV4 05-0 62 999 Hist H109 No H109 4-20 oric (Gar 11 al dasi Info l) rmat ion - Sour ce Unsp ecif ied HPV4 05-0 62 999 Hist H109 No H109 5-20 oric (Gar 10 al dasi Info l) rmat ion - Sour ce Unsp ecif ied MCV4 07-1 147 999 Hist H109 No H109 UF 2-20 oric 07 al Info rmat ion - Sour ce Unsp ecif ied Tdap 07-1 115 999 Hist H109 No H109 , 2-20 oric Adso 07 al rbed Info rmat ion - Sour ce Unsp ecif ied MMR 07-2 3 999 Hist H109 No H109 3-19 oric 99 al Info rmat ion - Sour ce Unsp ecif ied DTaP 07-2 107 999 Hist H109 No H109 , UF 3-19 oric 99 al Info rmat ion - Sour ce Unsp ecif ied Santino 07-2 2 999 Hist H109 No H109 o-OP 3-19 oric V 99 al Info rmat ion - Sour ce Unsp ecif ied DTaP 09-0 Intr 107 999 Hist H109 No H109 , UF 3-19 amus oric 97 cula al r Info rmat ion - Sour ce Unsp ecif ied Hib, 09-0 17 999 Hist H109 No H109 UF 3-19 oric 97 al Info rmat ion - Sour ce Unsp ecif ied
--- OUTSIDE RECORDS SUMMARY | 2017-06-26 17:16 | External Medical Summary Rpt ---
Author Author , ALEXI TRUONG Address Unknown Phone [email or web address] Care Team Providers Care Aviation Mechanic Name Role Phone DRAKE, DRAKE Unavailable Unavailable [facility] Unavailable Unavailable DEPARTMENT, [facility] DEPARTMENT [facility] Unavailable Unavailable DEPARTMENT, [facility] DEPARTMENT [facility] Unavailable Unavailable HOSPITAL, [facility] MISA, MISA Unavailable Unavailable [facility], Unavailable Unavailable [facility] JR ANAT, ANAT, Unavailable Unavailable GREISER TIN, GREISER Unavailable Unavailable [facility] Un[facility] Unavailable INC, [facility] GLADIS NAN, GLADIS Unavailable Unavailable [facility] Unavailable Unavailable [facility], [facility] LYND LEANNA, LYND LEANNA Unavailable Unavailable [facility] Unavailable Unavailable [facility] Unavailable Unavailable [facility] Unavailable Unavailable SERVICES, [facility] KATINA DMD QUAKER, KATINA Unavailable Unavailable DMD QUAKER KATINA DMD QUAKER, KATINA Unavailable Unavailable DMD QUAKER BURNT RANCHCAMRYNEL, Unavailable Unavailable CAYLADANYELLE CARMEN [facility] Unavailable Unavailable URGENT TREAT, [facility], Unavailable Unavailable PLLC, [facility] MONICA IFRAH, MONICA IFRAH Unavailable Unavailable [facility] Unavailable Unavailable OF [facility], [facility], [facility] Unavailable Unavailable [facility], [facility] Unavailable Unavailable [facility], [facility] Unavailable Unavailable [facility], [facility] Unavailable Unavailable [facility] FRANCO [facility], Unavailable Unavailable [facility], Unavailable Unavailable [facility] Purpose Continuity of Care Document - 02-21-2008 through 2016 Problems Code Diagnosis DOS Provider Status [id number] OTHER SPEC 12-25-2016 [facility] COND 2ND TRIMESTER R1032 LEFT LOWER 12-25-2016 [place] QU[facility]RANT [facility] PAIN IMAGING ASS Z3A15 15 WEEKS 12-25-2016 [place] GESTATION [facility]ICAL OF IMAGING ASS R102 PELVIC AND 10-01-2016 [place] PERINEAL [facility] N940 MITTELSCHME 08-30-2016 [facility] M2012 INKSTERUX 03-31-[address] [facility] ACQUIRED INC LEFT FOOT V80226 PAIN IN 03-31-2016 [place] LEFT FOOT [facility] IM[facility] ASS H5202 HYPERMETROP 03-06-2016 [facility] [place] LEFT EYE DOCTORS OF OPTOM F43699 UNSPECIFIED 03-06-2016 [facility] DOCTORS OF ASTIGMATISM OPTOM BILATERAL E162 HYPOGLYCEMI 03-03-2016 [facility] UNSPECIFIED URGENT TREAT M2011 HALLUX 03-03-2016 DAVIAN [facility] ACQUIRED URGENT RIGHT FOOT TREAT R42 DIZZINESS 03-03-2016 [facility] GIDDINESS URGENT TREAT R55 SYNCOPE AND 03-03-2016 [facility] URGENT TREAT H5213 MYOPIA 02-28-2016 YAZMIN BILATERAL 43759 REFLUX 08-28-2014 WEST MUR ESOPHAGITIS 8409 SPRAIN&STRA [...] SITE NOT SPECIFIED 2724 OTHER AND 05-14-2012 [place] UNSPECIFIED [facility] HYPERLIPIDE FRANKIE 42072 OTHER 05-14-2012 [facility] V202 ROUTINE 05-11-2012 [facility] OR CHILD HEALTH CHECK V2501 GENERAL 04-13-2012 [place] [facility] PRESCRIPTIO DEPARTMENT N ORAL CONTRACEPTS 2662 OTHER 01-21-2011 [place] B-COMPLEX HEALTH DEFICIENCIE DEPARTMENT S V069 NEED PROPH 01-21-2011 [place] [facility] VACCINATION HEALTH W/UNSPEC DEPARTMENT COMB VACCINE 5210 DENTAL 12-05-2010 KATINA DMD CARIES QUAKER 6260 ABSENCE OF 03-21-2009 SALVADOR MENSTRUATIO DARLING Last N 7061 OTHER ACNE 12-13-2008 [place] FRANCO 0340 STREPTOCOCC 12-05-2008 [facility] Medications Na ND Rx Da Fi Fi [...] BE RS IN C MO RG AN MA 68 02 02 0 15 4 WI [...] LS 18 LL ti AT 20 1- 00 ON 41 S ve IN 53 [...] LS 18 LL ti YL 60 1- - 00 ON 43 S ve MA 00 20 20 CH ED [address] AM NI 3 UG BE SO RS LO IN NE C MO 4 RG AN MG DO SE PK 00 02 02 0 15 4 WI 36 WE Ac 59 -1 -1 .0 LS 18 LL ti 10 00 ON 44 S ve 38 20 20 CH [address] AM 5 UG BE RS IN C MO RG AN 00 03 04 00 50 10 WI 26 WE Ac 06 -2 -[address] ti 60 6- 9- 00 ON 83 ve 49 20 20 MU [address] RR 0 UG AY D IN C DO 00 03 04 00 60 30 WI 26 WE Ac XY 14 -2 -0 [address] ti CY 33 6- 9- 00 ON 84 ve CL 14 20 20 MU IN [address] RR E 5 UG AY HY D CL IN AT C E 10 0 MG CA P AM 66 03 03 00 20 10 [...] 0 C MG CA PS UL E Procedures Procedure [place] [address] [place] [facility] 7 MEDICAL UTERUS IMAGING LIMITED ASS 1/> [place] [address] [place] DRAKE TRANSVAGI 7 MEDICAL NAL IMAGING ASS RADEX 51157 [place] MISA FOOT 6 MEDICAL COMPLETE IMAGING MINIMUM 3 ASS VIEWS SPHERE V2100 [facility] MONICA IFRAH SINGLE 6 [place] VISION DOCTORS [place] +/- OF OPTOM 4.00 PER LENS FRAMES V2020 [facility] MONICA IFRAH PURCHASES 6 [place] [facility]CT[facility] RADEX 94321 [facility] FOOT 6 [facility] COMPLETE INC INC MINIMUM 3 VIEWS OPHTH 03905 [facility] 6 XM&EVAL COMPRE NEW PT 1/> VST IAADIADOO 77707 [facility] 3 STREPT[place]O CCUS GROUP A SERVICES 05828 [facility] PROVIDED 3 OFFICE OTH/THN REG SCHED HOURS IAADIADOO 28970 [facility] WEST MUR 3 STREPTOCO CCUS GROUP A IADNA 36493 [place] CHLAMYDIA 3 [facility] TRACHOMAT DEPARTMEN DEPARTMEN IS T T AMPLIFIED PROBE TQ CONTRACEP A4267 [place] TIVE 3 [facility] SUPPLY CONDOM DEPARTMEN DEPARTMEN MALE EACH T T CONTRACEP S4993 [place] TIVE 3 [facility] PILLS FOR DEPARTMEN DEPARTMEN CONTROL T T IADNA 27151 [place] NEISSERIA 3 [facility] AE T T AMPLIFIED PROBE TQ URNLS DIP 74085 [facility] 3 STICK/TAB LET RGNT NON-AUTO W/O MICRSCP SERVICES 78471 [facility] PROVIDED 3 OFFICE OTH/THN REG SCHED HOURS COMPREHEN 13503 [place] SIVE 2 [facility] PANEL BLOOD 26860 [place] COUNT 2 [facility] AUTO&AUTO DIFRNTL WBC LIPID 67797 [place] PANEL [address] [facility] COLLECTIO 76442 [place] BOBRIGIDAON N VENOUS 2 [facility] VENIPUNCT URE IADNA 59107 [place] NEISSERIA 2 [facility] AE T T AMPLIFIED PROBE TQ CONTRACEP S4993 [place] LYND LEANNA TIVE 2 [facility] PILLS FOR DEPARTMEN CONTROL T IADNA 76479 [place] CHLAMYDIA 2 [facility] TRACHOMAT DEPARTMEN DEPARTMEN IS T T AMPLIFIED PROBE TQ IAADIADOO 96210 [facility] 1 [place] CCUS GROUP A CONTRACEP S4993 [place] TIVE 1 [facility] PILLS FOR DEPARTMEN DEPARTMEN CONTROL T T IADNA 67626 [place] CHLAMYDIA 1 [facility] TRACHOMAT DEPARTMEN DEPARTMEN IS T T AMPLIFIED PROBE TQ IM ADM 85491 [place] PRQ ID 1 [facility] SUBQ/IM NJXS 1 DEPARTMEN DEPARTMEN VACCINE T T IADNA 66471 [place] NEISSERIA 1 [facility] GONORRHOE DEPARTMEN DEPARTMEN AE T [place]BE TQ IV D9242 KATINA DMD KATINA DMD CONSCIOUS 1 QUAKER QUAKER SEDATION/ ANALG - EA ADD 15 MINUTES IV D9242 KATINA DMD KATINA DMD CONSCIOUS 1 [facility] SEDATION/ ANALG - EA ADD 15 MINUTES IAADIADOO 48587 [facility] 0 [place] CCUS GROUP A CONTRACEP S4993 [place] TIVE 0 [facility] PILLS FOR DEPARTMEN DEPARTMEN CONTROL T T CHOLESTER 86194 [place] OL 0 [facility] SERUM/WHO LE BLOOD DEPARTMEN DEPARTMEN TOTAL T T GLUC BLD 40977 [place] GLUC MNTR 0 [facility] DEV CLEARED DEPARTMEN DEPARTMEN FDA SPEC T T HOME USE BLOOD 47643 [place] COUNT 0 [facility] HEMOGLOBI N DEPARTMEN DEPARTMEN T T IADNA 54692 [place] CHLAMYDIA 0 [facility] TRACHOMAT DEPARTMEN DEPARTMEN IS T T AMPLIFIED PROBE TQ IADNA 11974 [place] NEISSERIA 0 CO [employer] [facility] GONORRHOE DEPARTMEN DEPARTMEN AE T T AMPLIFIED PROBE TQ URINE 41434 [facility] [place] 9 HEALTH CO HEALTH TEST CENTRAL VISUAL BANK ACCT DEPARTMEN COLOR T CMPRSN METHS CONTRACEP S4993 DHS/[facility] [place] TIVE 9 HEALTH CO HEALTH PILLS FOR CENTRAL BANK ACCT DEPARTMEN CONTROL T CONTRACEP A4267 DHS/[facility] [place] TIVE 9 HEALTH CO HEALTH SUPPLY CENTRAL CONDOM BANK ACCT DEPARTMEN MALE EACH T URINE 56257 WEST, WEST, 9 HASTINGS D HASTINGS D TEST VISUAL COLOR CMPRSN METHS IAADIADOO 22316 [place] 9 [facility] CCUS GROUP A URINE 11539 [facility], 8 HASTINGS D [place]AR[place] Last TEST VISUAL COLOR CMPRSN METHS Encounters Encounter Start End Date Code Location Performer Type Date EMERGENCY 05627 STAN COPPOLA, 6 6 PHYSICIAN [facility] S, [facility] T VISIT HIGH/URGE NT SEVERITY [facility] - 6 6 [facility] - 6 6 [facility] OUTPATIEN [facility] T OFFICE 14689 DAVIAN GRIFFITH OUTPATIEN 6 6 [facility] T NEW 30 URGENT MINUTES TREAT OFFICE 53405 [facility] OUTPATIEN 4 4 T VISIT 15 MINUTES EMERGENCY 30204 YAZMIN THOMPSON 3 3 EMERGENC[facility] T VISIT MODERATE SEVERITY OFFICE 69614 [place] OUTPATIEN 3 3 [facility] T VISIT 15 DEPARTMEN DEPARTMEN MINUTES T T OFFICE 23243 [place] OUTPATIEN 3 3 [facility] T VISIT 10 DEPARTMEN DEPARTMEN MINUTES T T OFFICE 00685 [facility] OUTPATIEN 3 3 T VISIT 15 MINUTES PERIODIC 43649 [place] PREVENTIV 3 3 [facility] E MED EST PATIENT DEPARTMEN [facility] 18-39 YRS T T OFFICE 38864 [facility] OUTPATIEN 3 3 T NEW 30 MINUTES [facility] [place] - 2 2 [facility] PERIODIC 19576 [facility] MUR PREVENTIV 2 2 E MED EST PATIENT 12-17YRS PERIODIC 16999 [place] PREVENTIV 2 2 [facility] HEALTH E MED EST PATIENT DEPARTMEN [facility] 12-17YRS T T OFFICE 76969 [facility] OUTPATIEN 1 1 T VISIT 15 MINUTES PERIODIC 68669 ESTRELLITA HARO PREVENTIV 1 1 [facility] E MED EST PATIENT [facility] 12-17YRS T T OFFICE 80683 [facility] FR[facility] RY OUTPATIEN 0 0 T NEW 30 MINUTES PERIODIC 53930 ESTRELLITA HARO PREVENTIV 0 0 [facility] E MED EST PATIENT [facility] 12-17YRS T T PERIODIC 99015 SALVADOR FRANCO, PREVENTIV 0 0 [place] Last E MED EST PATIENT 12-17YRS OFFICE 08076 [facility] [place] OUTPATIEN 9 9 HEALTH CO HEALTH T VISIT CENTRAL 15 BANK ACCT DEPARTMEN MINUTES T OFFICE 89952 [facility] 9 9 [place] Last T VISIT 15 MINUTES OFFICE 51626 [facility] 9 9 [place] Last T VISIT 15 MINUTES [facility]OSP[facility] - 9 9 [facility] EMERGENCY 93128 [facility], 9 9 [facility] EMERGENCY T VISIT PHYS INC MODERATE SEVERITY EMERGENCY 42732 [facility] 9 9 [facility] T VISIT LOW/MODER SEVERITY OFFICE 11554 [facility] 8 8 [place] Last T VISIT 15 MINUTES OFFICE 47547 [facility] 8 8 [place] Last T VISIT 15 MINUTES
--- OUTSIDE RECORDS SUMMARY | 2017-06-26 17:16 | External Medical Summary Rpt ---
Author Author , ALEXI TRUONG Address Unknown Phone [email or web address] Care Team Providers Care Telephone Answerer Name Role Phone DRAKE, DRAKE Unavailable Unavailable [facility] Unavailable Unavailable DEPARTMENT, [facility] DEPARTMENT [facility] Unavailable Unavailable DEPARTMENT[facility] DEPARTMENT [facility] Unavailable Unavailable HOSPITAL, [facility] MISA, MISA Unavailable Unavailable [facility], Unavailable Unavailable [facility] JR ANAT, ANAT, Unavailable Unavailable GREISER TIN, GREISER Unavailable Unavailable [facility] Unavailable Unavailable INC, [facility] GLADIS NAN, GLADIS Unavailable Unavailable NAN [facility] Unavailable Unavailable IMAGING [facility], [facility] LYND LEANNA, LYND LEANNA Unavailable Unavailable [facility] Unavailable Unavailable [facility] Unavailable Unavailable [facility] Unavailable Unavailable SERVICES, [facility] KATINA DMD [facility], KATINA Unavailable Unavailable [facility] KATINA DMD [facility], KATINA Unavailable Unavailable [facility], Unavailable Unavailable CAYLADANYELLE CARMEN [facility] Unavailable Unavailable URGENT TREAT, [facility], Unavailable Unavailable PLLC, [facility] MONICA IFRAH, MONICA IFRAH Unavailable Unavailable [facility] Unavailable Unavailable OF [facility], [facility] WEST MUR, WEST MUR Unavailable Unavailable [facility], [facility] Unavailable Unavailable [facility], [facility] Unavailable Unavailable [facility], [facility] Unavailable Unavailable [facility] FRANCO [facility], Unavailable Unavailable [place] Last [facility], Unavailable Unavailable [facility] Purpose Continuity of Care Document - 02-21-2008 through 2016 Problems Code Diagnosis DOS Provider Status [id number] OTHER SPEC 12-25-2016 [facility] COND 2ND TRIMESTER R1032 LEFT LOWER 12-25-2016 [place] QUADRANT MEDICAL PAIN IMAGING ASS Z3A15 15 WEEKS 12-25-2016 [place] GESTATION MEDICAL OF IMAGING ASS R102 PELVIC AND 10-01-2016 [place] PERINEAL MEDICAL PAIN IMAGING ASS N940 MITTELSCHME 08-30-2016 [facility] M2012 [place] [facility] 03-31-2016 [facility] ACQUIRED INC LEFT FOOT [id number] PAIN IN 03-31-2016 [place] LEFT FOOT MEDICAL IMAGING ASS H5202 HYPERMETROP 03-06-2016 [facility] [place] LEFT EYE DOCTORS OF OPTOM Q36780 UNSPECIFIED 03-06-2016 [facility] DOCTORS OF ASTIGMATISM [facility] BILATERAL E162 HYPOGLYCEMI 03-03-2016 [facility] UNSPECIFIED URGENT TREAT M2011 HALLUX 03-03-2016 DAVIAN [facility] ACQUIRED URGENT RIGHT FOOT TREAT R42 DIZZINESS 03-03-2016 [facility] GIDDINESS URGENT TREAT R55 SYNCOPE AND 03-03-2016 [facility] URGENT TREAT H5213 MYOPIA 02-28-2016 Y[facility] BILATERAL 86591 REFLUX 08-28-2014 WEST MUR ESOPHAGITIS 8409 SPRAIN&STRA [...] SITE NOT SPECIFIED 2724 OTHER AND 05-14-2012 [place] UNSPECIFIED [facility] HYPERLIPIDE FRANKIE 43263 OTHER 05-14-2012 [facility] V202 ROUTINE 05-11-2012 [facility] OR CHILD HEALTH CHECK V2501 GENERAL 04-13-2012 [facility] [facility] PRESCRIPTIO DEPARTMENT N ORAL CONTRACEPTS 2662 OTHER 01-21-2011 [place] B-COMPLEX HEALTH DEFICIENCIE DEPARTMENT S V069 NEED PROPH 01-21-2011 [facility] VACCINATION [facility]ALTH W/UNSPEC DEPARTMENT COMB VACCINE 5210 DENTAL 12-05-2010 KATINA DMD CARIES [facility] 6260 ABSENCE OF 03-21-2009 SALVADOR MENSTRUATIO DARLING Last N 7061 OTHER ACNE 12-13-2008 [place] FRANCO 0340 STREPTOCOCC 12-05-2008 [facility] Medications Na ND Rx Da Fi [...] BE RS IN C MO RG AN AK 68 02 02 0 15 4 WI [...] 1- - 00 ON 43 S ve AK 00 20 20 CH ED 10 11 [...] Procedure [place] [address] [place] MISA 7 MEDICAL UTERUS IMAGING LIMITED ASS 1/> [place] [address] [place] DRAKE TRANSVAGI 7 MEDICAL NAL IMAGING ASS RADEX 12912 [place] MISA FOOT 6 MEDICAL COMPLETE IMAGING MINIMUM 3 ASS VIEWS SPHERE V2100 [facility] MONICA IFRAH SINGLE 6 [place] [facility] [place] +/- OF OPTOM 4.00 PER LENS FRAMES V2020 [facility] MONICA IFRAH PURCHASES 6 [place] [facility] RADEX 69898 [facility] FOOT 6 [facility] COMPLETE INC INC MINIMUM 3 VIEWS OPHTH 91536 [facility] 6 XM&EVAL COMPRE NEW PT 1/> VST IAADIADOO 60158 [facility] 3 [place] CCUS GROUP A SERVICES 65042 [facility] PROVIDED 3 OFFICE OTH/THN REG SCHED HOURS IAADIADOO 70346 [facility] MUR 3 [place] CCUS GROUP A IADNA 16361 [place] CHLAMYDIA 3 [facility] HEALTH TRACHOMAT DEPARTMEN DEPARTMEN IS T T AMPLIFIED PROBE TQ CONTRACEP A4267 [place] TIVE 3 [facility] HEALTH SUPPLY CONDOM DEPARTMEN DEPARTMEN MALE EACH T T CONTRACEP S4993 [place] TIVE 3 [facility]ALTH PILLS FOR DEPARTMEN DEPARTMEN CONTROL T T IADNA 05559 [place] NEISSERIA 3 [facility] GONORRHOE [facility] AE T T AMPLIFIED PROBE TQ URNLS DIP 64108 [facility] 3 STICK/TAB LET RGNT NON-AUTO W/O MICRSCP SERVICES 99205 [facility] PROVIDED 3 OFFICE OTH/THN REG SCHED HOURS COMPREHEN 28556 [place] SIVE 2 [facility] PANEL BLOOD 26578 [place] COUNT 2 [facility] AUTO&AUTO DIFRNTL WBC LIPID 37145 [place] PANEL 2 [facility] COLLECTIO 05669 [place] N VENOUS 2 [facility] VENIPUNCT URE IADNA 42539 [place] NEISSERIA 2 [facility] GONORRHOE [facility] DEPARTMER[facility] AE T T AMPLIFIED PROBE TQ CONTRACEP S4993 [place] LYND LEANNA TIVE 2 [facility] PILLS FOR DEPARTMEN CONTROL T IADNA 33563 [place] CHLAMYDIA 2 [facility] HEALTH TRACHOMAT DEPARTMEN DEPARTMEN IS T T AMPLIFIED PROBE TQ IAADIADOO 19814 [facility] WEST RYA 1 [place] CCUS GROUP A CONTRACEP S4993 [place] TIVE 1 [facility] PILLS FOR DEPARTMEN DEPARTMEN CONTROL T T IADNA 48113 [place] CHLAMYDIA 1 [facility] HEALTH TRACHOMAT DEPARTMEN DEPARTMEN IS T T AMPLIFIED PROBE TQ IM ADM 36429 [place] PRQ ID 1 [facility] SUBQ/IM NJXS 1 DEPARTMEN DEPARTMEN VACCINE T T IADNA 47464 [place] NEISSERIA 1 [facility] GONORRHOE DEPARTMEN DEPARTMEN AE T T AMPLIFIED PROBE TQ IV D9242 KATINA DMD KATINA DMD CONSCIOUS 1 [facility] SEDATION/ ANALG - EA ADD 15 MINUTES IV D9242 KATINA DMD KATINA DMD CONSCIOUS 1 [facility] SEDATION/ ANALG - EA ADD 15 MINUTES IAADIADOO 19001 [facility] WEST RYA 0 [place] CCUS GROUP A CONTRACEP S4993 [place] TIVE 0 [facility] CO HEALTH PILLS FOR DEPARTMEN DEPARTMEN CONTROL T T CHOLESTER 45586 [place] OL 0 [employer] [facility] SERUM/WHO LE BLOOD DEPARTMEN DEPARTMEN TOTAL T T GLUC BLD 49705 [place] GLUC MNTR 0 [facility] HEALTH DEV CLEARED DEPARTMEN DEPARTMEN FDA SPEC T T HOME USE BLOOD 55359 [place] COUNT 0 [facility] HEALTH HEMOGLOBI N DEPARTMEN DEPARTMEN T T IADNA 19348 [place] CHLAMYDIA 0 [facility] HEALTH TRACHOMAT DEPARTMEN DEPARTMEN IS T T AMPLIFIED PROBE TQ IADNA 08974 [place] NEISSERIA 0 [facility] [employer] [facility] GONORRHOE DEPARTMEN DEPARTMEN AE T T AMPLIFIED PROBE TQ URINE 49517 [facility] [place] 9 HEALTH CO HEALTH TEST CENTRAL VISUAL BANK ACCT DEPARTMEN COLOR T CMPRSN METHS CONTRACEP S4993 [facility] [place] TIVE 9 HEALTH CO HEALTH PILLS FOR CENTRAL BANK ACCT DEPARTMEN CONTROL T CONTRACEP A4267 [facility] [place] TIVE 9 HEALTH CO HEALTH SUPPLY CENTRAL CONDOM BANK ACCT DEPARTMEN MALE EACH T URINE 43679 [facility], WEST, 9 HASTINGS D HASTINGS D TEST VISUAL COLOR CMPRSN METHS IAADIADOO 87809 [place] 9 [facility] CCUS GROUP A URINE 93125 [facility], 8 HASTINGS D DARLING Last TEST VISUAL COLOR CMPRSN METHS Encounters Encounter Start End Date Code Location Performer Type Date EMERGENCY 92563 STAN COPPOLA, [address] [facility], [facility] T VISIT HIGH/URGE NT SEVERITY [facility] - 6 6 [facility] - 6 6 [facility] T OFFICE 10683 DAVIAN GRIFFITH OUTPATIEN 6 6 [facility] T NEW 30 URGENT MINUTES TREAT OFFICE 58615 [facility] OUTPATIEN 4 4 T VISIT 15 MINUTES EMERGENCY 22448 YAZMIN THOMPSON 3 3 [facility] T VISIT MODERATE SEVERITY OFFICE 55613 [place] OUT[facility]IEN 3 3 [employer] [facility] T VISIT 15 DEPARTMEN DEPARTMEN MINUTES T T OFFICE 87077 [place] OUTPATIEN 3 3 [employer] [employer] [facility] T VISIT 10 DEPARTMEN DEPARTMEN MINUTES T T OFFICE 80492 [facility] OUTPATIEN 3 3 T VISIT 15 MINUTES PERIODIC 52380 [place] PREVENTIV 3 3 [employer] [facility] E MED EST PATIENT DEPARTMEN [facility] 18-39 YRS T T OFFICE 67186 [facility] OUT[facility] 3 3 T NEW 30 MINUTES [facility] [place] - 2 2 [facility] T PERIODIC 23824 [facility] MUR PREVENTIV 2 2 E MED EST PATIENT 12-17YRS PERIODIC 46928 [place] PREVENTIV 2 2 [facility] HEALTH E MED EST PATIENT DEPARTMEN [facility] 12-17YRS T T OFFICE 50495 [facility] OUTPATIEN 1 1 T VISIT 15 MINUTES PERIODIC 16487 ESTRELLITA HARO PREVENTIV 1 1 [facility] E MED EST PATIENT [facility] 12-17YRS T T OFFICE 23093 [facility] FRANCO RY OUTPATIEN 0 0 T NEW 30 MINUTES PERIODIC 21238 ESTRELLITA HARO PREVENTIV 0 0 [facility] E MED EST PATIENT [facility] 12-17YRS T T PERIODIC 41974 SALVADOR FRANCO, PREVENTIV 0 0 [place] Last E MED EST PATIENT 12-17YRS OFFICE 47127 [facility] [place] OUTPATIEN 9 9 HEALTH CO HEALTH T VISIT CENTRAL 15 BANK ACCT DEPARTMEN MINUTES T OFFICE 59081 [facility] 9 9 [place] Last T VISIT 15 MINUTES OFFICE 05322 [facility] 9 9 [place] Last T VISIT 15 MINUTES [facility] - 9 9 [facility] [place] 05381 [facility], 9 9 [facility] EMERGENCY T VISIT PHYS INC MODERATE SEVERITY EMERGENCY 89557 [facility] 9 9 [facility] T VISIT LOW/MODER SEVERITY OFFICE 51415 [facility] 8 8 [place] Last T VISIT 15 MINUTES OFFICE 49545 [facility] 8 8 [place] Last T VISIT 15 MINUTES
--- OUTSIDE RECORDS SUMMARY | 2017-06-26 17:16 | External Medical Summary Rpt ---
Author Author , ALEXI TRUONG Address Unknown Phone [email or web address] Immunization Name Date Rout CVX Reac Dose [...]
--- OUTSIDE RECORDS SUMMARY | 2017-06-26 17:18 | External Medical Summary Rpt ---
Author Author ALEXI Zena, [employer] Organization [employer] Address Unknown Phone Unavailable Results Hemoglobin & Hematocrit panel in Blood Observa Value Referen Units Interpr Notes Date tion ce etation Range Hematocri 37.0 - % Low No Sep 13 t [Volume 47.0 informati 2017 on in 12:10 PM Fraction] source of Blood data Hemoglobi 12.2 - g/dL Low No Sep 13 n 16.2 informati 2017 [Mass/vol on in 12:10 PM ume] in source Blood data Magnesium [Moles/volume] in Unspecified specimen Observa Value Referen Units Interpr Notes Date tion ce etation Range Magnesium 1.4 - 2.2 mg/dL High No Sep 13 informati 2016 9:53 [Moles/vo on in AM lume] in source Unspecifi data ed specimen Hemoglobin & Hematocrit panel in Blood Observa Value Referen Units Interpr Notes Date tion ce etation Range Hematocri 37.0 - % Low No Sep 13 t [Volume 47.0 informati 2016 6:10 on in AM Fraction] source of Blood data Hemoglobi 12.2 - g/dL Low Sep 13 n 16.2 2016 6:10 [Mass/vol CRITICAL AM ume] in RESULTS Blood RESU LTS CALLED TO: MADAI 06/02/17 [id number] Jerry Diehl Hemoglobin & Hematocrit panel in Blood Observa Value Referen Units Interpr Notes Date tion ce etation Range Hematocri 37.0 - % Low No Sep 12 t [Volume 47.0 informati 2017 6:10 on in PM Fraction] source of Blood data Hemoglobi 12.2 - g/dL Low No Sep 12 n 16.2 informati 2016 6:10 [Mass/vol on in PM ume] in source Blood data pH of Cord blood Observa Value Referen Units Interpr Notes Date tion ce etation Range pH of 7.35 - No Normal No Sep 12 Cord 7.45 informati informati 2017 5:03 blood on in on in PM source source data data Urinalysis dipstick W Reflex Microscopic panel in Urine Observa Value Referen Units Interpr Notes Date tion ce etation Range Collected by nurse? N Hold specimen in OE? Y Appeara CLEAR CLEAR No No No Sep 12 nce of informa informa informa 2017 Urine tion in tion in tion in 8:20 AM source source source data data data Bacteri OCC O No No No Sep 12 a informa informa informa 2017 [Presen tion in tion in tion in 8:20 AM ce] in source source source Urine data data data sedimen t by Light microsc opy Bilirub NEGATIV NEG No No No Sep 12 in E informa informa informa 2017 [Presen tion in tion in tion in 8:20 AM ce] in source source source Urine data data data by Test strip Erythro NEGATIV NEG No No No Sep 12 cytes E informa informa informa 2017 [Presen tion in tion in tion in 8:20 AM ce] in source source source Urine data data data Color STRAW YELLOW No No No Sep 12 of informa informa informa 2017 Urine tion in tion in tion in 8:20 AM source source source data data data Glucose NEG No No No Sep 12 [Mass/vol informati informati informati 2017 8:20 ume] in on in on in on in AM Urine by source source source Test data data data strip Ketones NEGATIV NEG mg/dL No No Sep 12 E informa informa 2017 [Presen tion in tion in 8:20 AM ce] in source source Urine data data by Automat ed test strip Mucus NEGATIV NEG No No No Sep 12 [Presen E informa informa informa 2016 ce] in tion in tion in tion in 8:20 AM Urine source source source sedimen data data data t by Light microsc opy Nitrite NEGATIV NEG No No No Sep 12 E informa informa informa 2017 [Presen tion in tion in tion in 8:20 AM ce] in source source source Urine data data data by Test strip pH of 5.0 - 8.5 No Normal No Sep 12 Urine informati informati 2017 8:20 on in on in AM source source data data Protein NEG mg/dL No No Sep 12 [Mass/vol informati informati 2017 8:20 ume] in on in on in AM Urine by source source Automated data data test strip Erythro NONE 0 rbc/hpf No No Sep 12 cytes informa informa 2017 [Presen tion in tion in 8:20 AM ce] in source source Urine data data sedimen t by Light microsc opy Specific 1.005 - No Normal No Sep 12 gravity 1.030 informati informati 2017 8:20 of Urine on in on in AM source source data data Epithel OCC 0 - 5 #/hpf No No Sep 12 ial informa informa 2017 cells.s tion in tion in 8:20 AM quamous source source data data [Presen ce] in Urine sedimen t by Microsc opy high power field Urobili 0.2 NEG E.U./dL No No Sep 12 nogen informa informa 2017 [Presen tion in tion in 8:20 AM ce] in source source Urine data data by Test strip Leukocyte O wbc/hpf No No Sep 12 s informati informati 2017 8:20 [#/volume on in on in AM ] in source source Urine data data Urinalysis dipstick W Reflex Microscopic panel in Urine Observa Value Referen Units Interpr Notes Date tion ce etation Range Collected by nurse? N Hold specimen in OE? Y Appeara CLEAR CLEAR No No No Sep 12 nce of informa informa informa 2017 Urine tion in tion in tion in 8:20 AM source source source data data data Bilirub NEGATIV NEG No No No Sep 12 in E informa informa informa 2017 [Presen tion in tion in tion in 8:20 AM ce] in source source source Urine data data data by Test strip Erythro NEGATIV NEG No No No Sep 12 cytes E informa informa informa 2017 [Presen tion in tion in tion in 8:20 AM ce] in source source source Urine data data data Color STRAW YELLOW No No No Sep 12 of informa informa informa 2017 Urine tion in tion in tion in 8:20 AM source source source data data data Glucose NEG No No No Sep 12 [Mass/vol informati informati informati 2017 8:20 ume] in on in on in on in AM Urine by source source source Test data data data strip Ketones NEGATIV NEG mg/dL No No Sep 12 E informa informa 2017 [Presen tion in tion in 8:20 AM ce] in source source Urine data data by Automat ed test strip Mucus NEGATIV NEG No No No Sep 12 [Presen E informa informa informa 2016 ce] in tion in tion in tion in 8:20 AM Urine source source source sedimen data data data t by Light microsc opy Nitrite NEGATIV NEG No No No Sep 12 E informa informa informa 2016 [Presen tion in tion in tion in 8:20 AM ce] in source source source Urine data data data by Test strip pH of 5.0 - 8.5 No Normal No Sep 12 Urine informati informati 2017 8:20 on in on in AM source source data data Protein NEG mg/dL No No Sep 12 [Mass/vol informati informati 2017 8:20 ume] in on in on in AM Urine by source source Automated data data test strip Specific 1.005 - No Normal No Sep 12 gravity 1.030 informati informati 2017 8:20 of Urine on in on in AM source source data data Urobili 0.2 NEG E.U./dL No No Sep 12 nogen informa informa 2017 [Presen tion in tion in 8:20 AM ce] in source source Urine data data by Test strip Urinalysis dipstick W Reflex Microscopic panel in Urine Observa Value Referen Units Interpr Notes Date tion ce etation Range Collected by nurse? Y Hold specimen in OE? N Appeara SL CLEAR No No No Sep 12 nce of CLOUDY informa informa informa 2017 Urine tion in tion in tion in 6:39 AM source source source data data data Bacteri 4+ O No No No Sep 12 a informa informa informa 2017 [Presen tion in tion in tion in 6:39 AM ce] in source source source Urine data data data sedimen t by Light microsc opy Bilirub NEGATIV NEG No No No Sep 12 in E informa informa informa 2017 [Presen tion in tion in tion in 6:39 AM ce] in source source source Urine data data data by Test strip Erythro NEGATIV NEG No No No Sep 12 cytes E informa informa informa 2017 [Presen tion in tion in tion in 6:39 AM ce] in source source source Urine data data data Color DK YELLOW No No No Sep 12 of YELLOW informa informa informa 2017 Urine tion in tion in tion in 6:39 AM source source source data data data Glucose NEG No No No Sep 12 [Mass/vol informati informati informati 2017 6:39 ume] in on in on in on in AM Urine by source source source Test data data data strip Ketones NEGATIV NEG mg/dL No No Sep 12 E informa informa 2016 [Presen tion in tion in 6:39 AM ce] in source source Urine data data by Automat ed test strip Mucus NEGATIV NEG No No No Sep 12 [Presen E informa informa informa 2016 ce] in tion in tion in tion in 6:39 AM Urine source source source sedimen data data data t by Light microsc opy Nitrite NEGATIV NEG No No No Sep 12 E informa informa informa 2016 [Presen tion in tion in tion in 6:39 AM ce] in source source source Urine data data data by Test strip pH of 5.0 - 8.5 No Normal No Sep 12 Urine informati informati 2017 6:39 on in on in AM source source data data Protein NEG mg/dL No No Sep 12 [Mass/vol informati informati 2017 6:39 ume] in on in on in AM Urine by source source Automated data data test strip Specific 1.005 - No Normal No Sep 12 gravity 1.030 informati informati 2017 6:39 of Urine on in on in AM source source data data Epithel 5-10 0 - 5 #/hpf No No Sep 12 ial informa informa 2017 cells.s tion in tion in 6:39 AM quamous source source data data [Presen ce] in Urine sedimen t by Microsc opy high power field Urobili 0.2 NEG E.U./dL No No Sep 12 nogen informa informa 2017 [Presen tion in tion in 6:39 AM ce] in source source Urine data data by Test strip Leukocy [10 O wbc/hpf No No Sep 12 remigio wbc/hpf informa informa 2017 [#/volu ; 20 tion in tion in 6:39 AM me] in wbc/hpf source source Urine ] data data Urinalysis dipstick W Reflex Microscopic panel in Urine Observa Value Referen Units Interpr Notes Date tion ce etation Range Collected by nurse? Y Hold specimen in OE? N Appeara SL CLEAR No No No Sep 12 nce of CLOUDY informa informa informa 2017 Urine tion in tion in tion in 6:39 AM source source source data data data Bilirub NEGATIV NEG No No No Sep 12 in E informa informa informa 2017 [Presen tion in tion in tion in 6:39 AM ce] in source source source Urine data data data by Test strip Erythro NEGATIV NEG No No No Sep 12 cytes E informa informa informa 2017 [Presen tion in tion in tion in 6:39 AM ce] in source source source Urine data data data Color DK YELLOW No No No Sep 12 of YELLOW informa informa informa 2017 Urine tion in tion in tion in 6:39 AM source source source data data data Glucose NEG No No No Sep 12 [Mass/vol informati informati informati 2017 6:39 ume] in on in on in on in AM Urine by source source source Test data data data strip Ketones NEGATIV NEG mg/dL No No Sep 12 E informa informa 2016 [Presen tion in tion in 6:39 AM ce] in source source Urine data data by Automat ed test strip Mucus NEGATIV NEG No No No Sep 12 [Presen E informa informa informa 2016 ce] in tion in tion in tion in 6:39 AM Urine source source source sedimen data data data t by Light microsc opy Nitrite NEGATIV NEG No No No Sep 12 E informa informa informa 2016 [Presen tion in tion in tion in 6:39 AM ce] in source source source Urine data data data by Test strip pH of 5.0 - 8.5 No Normal No Sep 12 Urine informati informati 2017 6:39 on in on in AM source source data data Protein NEG mg/dL No No Sep 12 [Mass/vol informati informati 2017 6:39 ume] in on in on in AM Urine by source source Automated data data test strip Specific 1.005 - No Normal No Sep 12 gravity 1.030 informati informati 2017 6:39 of Urine on in on in AM source source data data Urobili 0.2 NEG E.U./dL No No Sep 12 nogen informa informa 2017 [Presen tion in tion in 6:39 AM ce] in source source Urine data data by Test strip Drugs identified in Urine by Screen method Observa Value Referen Units Interpr Notes Date tion ce etation Range Collected by nurse? Y Hold specimen in OE? N Positive urine drug screen samples are stored for 7 days. Contact the Lab if confirmation of positives is needed. Ampheta NEGATIV <1000 ng/mL No No Sep 12 mine E informa informa 2017 [Presen tion in tion in 6:39 AM ce] in source source Urine data data by Screen method Barbitura <200 ng/mL No No Sep 12 remigio informati informati 2017 6:39 [Mass/vol on in on in AM ume] in source source Urine by data data Screen method Benzodiaz 200 ng/mL ng/mL No No Sep 12 epines informati informati 2017 6:39 [Mass/vol on in on in AM ume] in source source Serum or data data Plasma by Screen method Cocaine <300 ng/g No No Sep 12 [Mass/vol informati informati 2017 6:39 ume] in on in on in AM Unspecifi source source ed data data specimen Methadone <300 ng/mL No No Sep 12 informati informati 2017 6:39 [Mass/vol on in on in AM ume] in source source Unspecifi data data ed specimen Opiates <300 ng/mL No No Sep 12 [Mass/vol informati informati 2017 6:39 ume] in on in on in AM Unspecifi source source ed data data specimen Phencycli <25 ng/mL No No Sep 12 dine informati informati 2017 6:39 [Mass/vol on in on in AM ume] in source source Unspecifi data data ed specimen 11-Hydr NEGATIV <50 ng/mL No No Sep 12 oxy E informa informa 2017 delta-9 tion in tion in 6:39 AM source source tetrahy data data drocann abinol [Presen ce] in Unspeci fied specime n Blood type & Indirect antibody screen panel in Blood Observa Value Referen Units Interpr Notes Date tion ce etation Range Blood NEGATIV NEGATIV No No No Sep 12 group E E informa informa informa 2017 antibod tion in tion in tion in 4:30 AM y source source source screen data data data [Presen ce] in Serum or Plasma Rh POSITIV No No No No Sep 12 [Type] E informa informa informa informa 2017 in tion in tion in tion in tion in 4:30 AM Blood source source source source data data data data ABO O No No No No Sep 12 group informa informa informa informa 2017 [Type] tion in tion in tion in tion in 4:30 AM in source source source source Blood data data data data CBC W Auto Differential panel in Blood Observa Value Referen Units Interpr Notes Date tion ce etation Range Basophils 0 - 0.2 K/MM3 Normal No Sep 12 informati 2017 4:30 [#/volume on in AM ] in source Blood by data Automated count Basophils 0.1 - 2.0 % Normal No Sep 12 /100 informati 2017 4:30 leukocyte on in AM s in source Blood by data Automated count Eosinophi 0.0 - 0.4 K/mm3 Normal No Sep 12 ls informati 2016 4:30 [#/volume on in AM ] in source Blood by data Automated count Eosinophi 0.1 - % Normal No Sep 12 ls/100 12.0 informati 2016 4:30 leukocyte on in AM s in source Blood by data Automated count Granulocy 1.8 - 7.8 K/mm3 Normal No Sep 12 remigio informati 2016 4:30 [#/volume on in AM ] in source Blood by data Automated count Granulocy 37.0 - % Normal No Sep 12 remigio/100 80.0 informati 2017 4:30 leukocyte on in AM s in source Blood by data Automated count Hematocri 37.0 - % Low No Sep 12 t [Volume 47.0 informati 2017 4:30 on in AM Fraction] source of Blood data Hemoglobi 12.2 - g/dL Low No Sep 12 n 16.2 informati 2016 4:30 [Mass/vol on in AM ume] in source Blood data Lymphocyt 0.7 - 4.5 K/mm3 Normal No Sep 12 es informati 2017 4:30 [#/volume on in AM ] in source Unspecifi data ed specimen by Automated count Lymphocyt 10 - 50.0 % Normal No Sep 12 es informati 2017 4:30 [#/volume on in AM ] in source Unspecifi data ed specimen by Automated count Erythrocy 27 - 31.2 pg Normal No Sep 12 te mean informati 2017 4:30 corpuscul on in AM ar source hemoglobi data n [Entitic mass] Erythrocy 31.8 - g/dl Normal No Sep 12 te mean 35.4 informati 2017 4:30 corpuscul on in AM ar source hemoglobi data n concentra tion [Mass/vol ume] by Automated count Erythrocy 82.2 - fl Normal No Sep 12 te mean 97.8 informati 2016 4:30 corpuscul on in AM ar volume source [Entitic data volume] by Automated count Monocytes 0.1 - 1.0 K/mm3 Normal No Sep 12 informati 2017 4:30 [#/volume on in AM ] in source Blood by data Automated count Monocytes 1.7 - 9.3 % Normal No Sep 12 /100 informati 2017 4:30 leukocyte on in AM s in source Blood by data Automated count Platelet 7.4 - fl Normal No Sep 12 mean 10.4 informati 2017 4:30 volume on in AM [Entitic source volume] data in Blood by Automated count Platelets 142 - 424 K/mm3 Normal No Sep 12 informati 2017 4:30 [#/volume on in AM ] in source Blood data Erythrocy 4.2 - 5.4 M/mm3 Low No Sep 12 remigio informati 2017 4:30 [#/volume on in AM ] in source Amniotic data fluid Erythrocy 11.5 - % Normal No Sep 12 te 17.5 informati 2016 4:30 distribut on in AM ion width source [Entitic data volume] by Automated count Leukocyte 4.8 - K/MM3 Normal No Sep 12 s 10.8 informati 2016 4:30 [#/volume on in AM ] in source Blood data Creatinine 24H renal clearance panel Observa Value Referen Units Interpr Notes Date tion ce etation Range Creatinin 0.55 - mg/dL Normal No Sep 8 e 1.02 informati 2017 [Mass/vol on in ume] in source Serum or data Plasma Creatinin 600 - mg/24HR Low No Sep 8 e 1600 informati 2017 [Mass/vol on in ume] in source Urine data Creatine 0.60 - g/24_HR High No Sep 8 [Mass/vol 1.80 informati 2017 ume] in on in Urine source data Creatinin 70 - 156 ml/min No No Sep 8 e renal informati informati 2017 clearance on in on in in source source unspecifi data data ed time Creatinin No HOURS No No Sep 8 e renal informati informati informati 2017 clearance on in on in on in in source source source unspecifi data data data ed time Volume of 600 - mL High No Sep 8 Urine 1600 informati 2017 on in source data Protein [Mass/time] in 24 hour Urine Observa Value Referen Units Interpr Notes Date tion ce etation Range Creatinin No HOURS No No Sep 8 e renal informati informati informati 2017 clearance on in on in on in in source source source unspecifi data data data ed time Protein 40 - 90 mg/24_HR High No Sep 8 [Mass/vol informati 2017 ume] in on in 24 hour source Urine data Volume of 600 - mL High No Sep 8 Urine 1600 informati 2017 on in source data Protein [Mass/time] in 24 hour Urine Observa Value Referen Units Interpr Notes Date tion ce etation Range Collected by nurse? N Hold specimen in OE? Y Creatinin No HOURS No No Sep 5 e renal informati informati informati 2017 7:45 clearance on in on in on in PM in source source source unspecifi data data data ed time Protein 40 - 90 mg/24_HR High No Sep 5 [Mass/vol informati 2017 7:45 ume] in on in PM 24 hour source Urine data Volume of 600 - mL High No Sep 5 Urine 1600 informati 2016 7:45 on in PM source data Protein [Mass/time] in 24 hour Urine Observa Value Referen Units Interpr Notes Date tion ce etation Range Collected by nurse? N Hold specimen in OE? Y Creatinin No HOURS No No Sep 5 e renal informati informati informati 2017 7:45 clearance on in on in on in PM in source source source unspecifi data data data ed time Protein 40 - 90 mg/24_HR High No Sep 5 [Mass/vol informati 2017 7:45 ume] in on in PM 24 hour source Urine data Volume of 600 - mL High No Sep 5 Urine 1600 informati 2017 7:45 on in PM source data Basic metabolic panel in Blood Observa Value Referen Units Interpr Notes Date tion ce etation Range Urea 7 - 18 mg/dL Normal No Sep 5 nitrogen informati 2017 7:10 [Mass/vol on in PM ume] in source Serum or data Plasma Calcium 8.5 - mg/dL Normal No Sep 5 [Mass/vol 10.1 informati 2017 7:10 ume] in on in PM Serum or source Plasma data Chloride 98 - 107 mmoL/L Normal No Sep 5 [Moles/vo informati 2017 7:10 lume] in on in PM Serum or source Plasma data Carbon 21.0 - mmoL/L Normal No Sep 5 dioxide, 32.0 informati 2017 7:10 total on in PM [Moles/vo source lume] in data Serum or Plasma Creatinin 0.55 - mg/dL Normal No Sep 5 e 1.02 informati 2017 7:10 [Mass/vol on in PM ume] in source Serum or data Plasma Creatinin 50 - 200 ML/MIN Normal No Sep 5 e renal informati 2017 7:10 clearance on in PM source predicted data by Cockcroft -Gault formula Estimated 59- ML/MIN No REFERENCE Sep 5 informati RANGE: 2017 7:10 glomerula on in >60 PM r source ML/MIN/1. filtratio data 73 SQUARE n rate METERSIf (GF this patient is -A merican, then multiply theresult by 1.210. Glucose 74 - 106 mg/dL High No Sep 5 [Mass/vol informati 2017 7:10 ume] in on in PM Serum or source Plasma data Potassium 3.5 - 5.1 mmoL/L Normal No Sep 5 informati 2017 7:10 [Moles/vo on in PM lume] in source Serum or data Plasma Sodium 136 - 145 mmoL/L Low No Sep 5 [Moles/vo informati 2017 7:10 lume] in on in PM Serum or source Plasma data Aspartate aminotransferase [Enzymatic activity/volume] in Serum or Plasma Observa Value Referen Units Interpr Notes Date tion ce etation Range Aspartate 15 - 37 U/L Normal No Sep 5 informati 2017 7:10 aminotran on in PM sferase source [Enzymati data c activity/ volume] in Serum or Plasma Alanine aminotransferase [Enzymatic activity/volume] in Serum or Plasma Observa Value Referen Units Interpr Notes Date tion ce etation Range Alanine 12 - 78 U/L Normal No Sep 5 aminotran informati 2017 7:10 sferase on in PM [Enzymati source c data activity/ volume] in Serum or Plasma Urate [Mass/volume] in Serum or Plasma Observa Value Referen Units Interpr Notes Date tion ce etation Range Urate 2.6 - 7.2 mg/dL Normal No Sep 5 [Mass/vol informati 2017 7:10 ume] in on in PM Serum or source Plasma data Fibrin D-dimer FEU [Mass/volume] in Platelet poor plasma Observa Value Referen Units Interpr Notes Date tion ce etation Range Fibrin 0 - 400 ng/mL High Sep 5 D-dimer alert NOTIFICAT 2017 7:10 FEU ION PM [Mass/vol RESULT ume] in The Platelet D-Dimer poor values plasma are presented in units of mass(ng/m L) ofD-Dimer units(DDU ).This test has been FDA approved as an aid in the assessmen tand evaluatio n of suspected DIC, and thromboem bolic eventsinc luding PE and DVT. However, it does not have approvalf or cut-off values for the exclusion of these condition s. Fibrinogen [Mass/volume] in Platelet poor plasma by Coagulation assay Observa Value Referen Units Interpr Notes Date tion ce etation Range Fibrinoge 204.2 - mg/dL Normal No Sep 5 n 499.8 informati 2017 7:10 [Mass/vol on in PM ume] in source Platelet data poor plasma by Coagulati on assay INR in Blood by Coagulation assay Observa Value Referen Units Interpr Notes Date tion ce etation Range INR in 0.9 - 1.1 No Low INDICATIO Sep 5 Blood by informati N 2017 7:10 Coagulati on in PM on assay source INR data RANGETHER APY FOR DVT, PE, ATRIAL FIB; 2.0 - 3.0PROPHY LAXIS FOR VTETHERAP Y FOR MECHANICA L HEART 2.5 - 3.5VALVE; PREVENTIO N OF SYSTEMICE MBOLISM SECONDARY TO AMI Prothromb 9.4 - SECONDS Low No Sep 5 in time 11.8 informati 2017 7:10 (PT) in on in PM Platelet source poor data plasma by Coagulati on assay Activated partial thrombplastin time (aPTT) in Platelet poor plasma by Coagulation assay Observa Value Referen Units Interpr Notes Date tion ce etation Range Activated 23.6 - SECONDS Normal No Sep 5 partial 34.0 informati 2017 7:10 thrombpla on in PM stin time source (aPTT) data in Platelet poor plasma by Coagulati on assay Basic metabolic panel in Blood Observa Value Referen Units Interpr Notes Date tion ce etation Range Urea 7 - 18 mg/dL Normal No Sep 5 nitrogen informati 2017 7:10 [Mass/vol on in PM ume] in source Serum or data Plasma Calcium 8.5 - mg/dL Normal No Sep 5 [Mass/vol 10.1 informati 2017 7:10 ume] in on in PM Serum or source Plasma data Chloride 98 - 107 mmoL/L Normal No Sep 5 [Moles/vo informati 2017 7:10 lume] in on in PM Serum or source Plasma data Carbon 21.0 - mmoL/L Normal No Sep 5 dioxide, 32.0 informati 2017 7:10 total on in PM [Moles/vo source lume] in data Serum or Plasma Creatinin 0.55 - mg/dL Normal No Sep 5 e 1.02 informati 2017 7:10 [Mass/vol on in PM ume] in source Serum or data Plasma Creatinin 50 - 200 ML/MIN Normal No Sep 5 e renal informati 2017 7:10 clearance on in PM source predicted data by Cockcroft -Gault formula Estimated 59- ML/MIN No REFERENCE Sep 5 informati RANGE: 2017 7:10 glomerula on in >60 PM r source ML/MIN/1. filtratio data 73 SQUARE n rate METERSIf (GF this patient is -A merican, then multiply theresult by 1.210. Glucose 74 - 106 mg/dL High No Sep 5 [Mass/vol informati 2017 7:10 ume] in on in PM Serum or source Plasma data Potassium 3.5 - 5.1 mmoL/L Normal No Sep 5 informati 2017 7:10 [Moles/vo on in PM lume] in source Serum or data Plasma Sodium 136 - 145 mmoL/L Low No Sep 5 [Moles/vo informati 2016 7:10 lume] in on in PM Serum or source Plasma data Aspartate aminotransferase [Enzymatic activity/volume] in Serum or Plasma Observa Value Referen Units Interpr Notes Date tion ce etation Range Aspartate 15 - 37 U/L Normal No Sep 5 informati 2016 7:10 aminotran on in PM sferase source [Enzymati data c activity/ volume] in Serum or Plasma Alanine aminotransferase [Enzymatic activity/volume] in Serum or Plasma Observa Value Referen Units Interpr Notes Date tion ce etation Range Alanine 12 - 78 U/L Normal No Sep 5 aminotran informati 2016 7:10 sferase on in PM [Enzymati source c data activity/ volume] in Serum or Plasma Urate [Mass/volume] in Serum or Plasma Observa Value Referen Units Interpr Notes Date ti ce etation Range Urate 2.6 - 7.2 mg/dL Normal No Sep 5 [Mass/vol informati 2016 7:10 ume] in on in PM Serum or source Plasma data CBC W Auto Differential panel in Blood Observa Value Referen Units Interpr Notes Date tion ce etation Range Basophils 0 - 0.2 K/MM3 Normal No Sep 5 informati 2016 7:10 [#/volume on in PM ] in source Blood by data Automated count Basophils 0.1 - 2.0 % Normal No Sep 5 /100 informati 2016 7:10 leukocyte on in PM s in source Blood by data Automated count Eosinophi 0.0 - 0.4 K/mm3 Normal No Sep 5 ls informati 2016 7:10 [#/volume on in PM ] in source Blood by data Automated count Eosinophi 0.1 - % Normal No Sep 5 ls/100 12.0 informati 2016 7:10 leukocyte on in PM s in source Blood by data Automated count Granulocy 1.8 - 7.8 K/mm3 Normal No Sep 5 remigio informati 2016 7:10 [#/volume on in PM ] in source Blood by data Automated count Granulocy 37.0 - % Normal No Sep 5 remigio/100 80.0 informati 2016 7:10 leukocyte on in PM s in source Blood by data Automated count Hematocri 37.0 - % Low No Sep 5 t [Volume 47.0 informati 2016 7:10 on in PM Fraction] source of Blood data Hemoglobi 12.2 - g/dL Low No Sep 5 n 16.2 informati 2017 7:10 [Mass/vol on in PM ume] in source Blood data Lymphocyt 0.7 - 4.5 K/mm3 Normal No Sep 5 es informati 2017 7:10 [#/volume on in PM ] in source Unspecifi data ed specimen by Automated count Lymphocyt 10 - 50.0 % Normal No Sep 5 es informati 2016 7:10 [#/volume on in PM ] in source Unspecifi data ed specimen by Automated count Erythrocy 27 - 31.2 pg Normal No Sep 5 te mean informati 2017 7:10 corpuscul on in PM ar source hemoglobi data n [Entitic mass] Erythrocy 31.8 - g/dl Normal No Sep 5 te mean 35.4 informati 2017 7:10 corpuscul on in PM ar source hemoglobi data n concentra tion [Mass/vol ume] by Automated count Erythrocy 82.2 - fl Normal No Sep 5 te mean 97.8 informati 2016 7:10 corpuscul on in PM ar volume source [Entitic data volume] by Automated count Monocytes 0.1 - 1.0 K/mm3 Normal No Sep 5 informati 2017 7:10 [#/volume on in PM ] in source Blood by data Automated count Monocytes 1.7 - 9.3 % Normal No Sep 5 /100 informati 2017 7:10 leukocyte on in PM s in source Blood by data Automated count Platelet 7.4 - fl Normal No Sep 5 mean 10.4 informati 2017 7:10 volume on in PM [Entitic source volume] data in Blood by Automated count Platelets 142 - 424 K/mm3 Normal No Sep 5 informati 2017 7:10 [#/volume on in PM ] in source Blood data Erythrocy 4.2 - 5.4 M/mm3 Normal No Sep 5 remigio informati 2017 7:10 [#/volume on in PM ] in source Amniotic data fluid Erythrocy 11.5 - % Normal No Sep 5 te 17.5 informati 2017 7:10 distribut on in PM ion width source [Entitic data volume] by Automated count Leukocyte 4.8 - K/MM3 High No Sep 5 s 10.8 informati 2016 7:10 [#/volume on in PM ] in source Blood data Urinalysis dipstick W Reflex Microscopic panel in Urine Observa Value Referen Units Interpr Notes Date tion ce etation Range Collected by nurse? Y Hold specimen in OE? N Appeara SL CLEAR No No No Sep 5 nce of CLOUDY informa informa informa 2017 Urine tion in tion in tion in 5:50 PM source source source data data data Bacteri 3+ O No No No Sep 5 a informa informa informa 2016 [Presen tion in tion in tion in 5:50 PM ce] in source source source Urine data data data sedimen t by Light microsc opy Bilirub NEGATIV NEG No No No Sep 5 in E informa informa informa 2016 [Presen tion in tion in tion in 5:50 PM ce] in source source source Urine data data data by Test strip Erythro 1+ NEG No Abnorma No Sep 5 cytes informa l informa 2016 [Presen tion in tion in 5:50 PM ce] in source source Urine data data Color YELLOW YELLOW No No No Sep 5 of informa informa informa 2016 Urine tion in tion in tion in 5:50 PM source source source data data data Glucose NEG No No No Sep 5 [Mass/vol informati informati informati 2017 5:50 ume] in on in on in on in PM Urine by source source source Test data data data strip Ketones NEGATIV NEG mg/dL No No Sep 5 E informa informa 2016 [Presen tion in tion in 5:50 PM ce] in source source Urine data data by Automat ed test strip Mucus 2+ NEG No Abnorma No Sep 5 [Presen informa l informa 2016 ce] in tion in tion in 5:50 PM Urine source source sedimen data data t by Light microsc opy Nitrite NEGATIV NEG No No No Sep 5 E informa informa informa 2016 [Presen tion in tion in tion in 5:50 PM ce] in source source source Urine data data data by Test strip pH of 5.0 - 8.5 No Normal No Sep 5 Urine informati informati 2017 5:50 on in on in PM source source data data Protein NEG mg/dL No No Sep 5 [Mass/vol informati informati 2017 5:50 ume] in on in on in PM Urine by source source Automated data data test strip Erythro 10-20 0 rbc/hpf No No Sep 5 cytes informa informa 2017 [Presen tion in tion in 5:50 PM ce] in source source Urine data data sedimen t by Light microsc opy Specific 1.005 - No Normal No Sep 5 gravity 1.030 informati informati 2017 5:50 of Urine on in on in PM source source data data Epithel 20-50 0 - 5 #/hpf No No Sep 5 ial informa informa 2017 cells.s tion in tion in 5:50 PM quamous source source data data [Presen ce] in Urine sedimen t by Microsc opy high power field Urobili 0.2 NEG E.U./dL No No Sep 5 nogen informa informa 2017 [Presen tion in tion in 5:50 PM ce] in source source Urine data data by Test strip Leukocy [10 O wbc/hpf No No Sep 5 remigio wbc/hpf informa informa 2017 [#/volu ; 20 tion in tion in 5:50 PM me] in wbc/hpf source source Urine ] data data Drugs identified in Urine by Screen method Observa Value Referen Units Interpr Notes Date tion ce etation Range Collected by nurse? Y Hold specimen in OE? N Positive urine drug screen samples are stored for 7 days. Contact the Lab if confirmation of positives is needed. Ampheta NEGATIV <1000 ng/mL No No Sep 5 mine E informa informa 2017 [Presen tion in tion in 5:50 PM ce] in source source Urine data data by Screen method Barbitura <200 ng/mL No No Sep 5 remigio informati informati 2017 5:50 [Mass/vol on in on in PM ume] in source source Urine by data data Screen method Benzodiaz 200 ng/mL ng/mL No No Sep 5 epines informati informati 2017 5:50 [Mass/vol on in on in PM ume] in source source Serum or data data Plasma by Screen method Cocaine <300 ng/g No No Sep 5 [Mass/vol informati informati 2017 5:50 ume] in on in on in PM Unspecifi source source ed data data specimen Methadone <300 ng/mL No No Sep 5 informati informati 2017 5:50 [Mass/vol on in on in PM ume] in source source Unspecifi data data ed specimen Opiates <300 ng/mL No No Sep 5 [Mass/vol informati informati 2017 5:50 ume] in on in on in PM Unspecifi source source ed data data specimen Phencycli <25 ng/mL No No Sep 5 dine informati informati 2017 5:50 [Mass/vol on in on in PM ume] in source source Unspecifi data data ed specimen 11-Hydr NEGATIV <50 ng/mL No No Sep 5 oxy E informa informa 2017 delta-9 tion in tion in 5:50 PM source source tetrahy data data drocann abinol [Presen ce] in Unspeci fied specime n Urinalysis dipstick W Reflex Microscopic panel in Urine Observa Value Referen Units Interpr Notes Date tion ce etation Range Collected by nurse? Y Hold specimen in OE? N Appeara SL CLEAR No No No Sep 5 nce of CLOUDY informa informa informa 2017 Urine tion in tion in tion in 5:50 PM source source source data data data Bilirub NEGATIV NEG No No No Sep 5 in E informa informa informa 2017 [Presen tion in tion in tion in 5:50 PM ce] in source source source Urine data data data by Test strip Erythro 1+ NEG No Abnorma No Sep 5 cytes informa l informa 2016 [Presen tion in tion in 5:50 PM ce] in source source Urine data data Color YELLOW YELLOW No No No Sep 5 of informa informa informa 2017 Urine tion in tion in tion in 5:50 PM source source source data data data Glucose NEG No No No Sep 5 [Mass/vol informati informati informati 2017 5:50 ume] in on in on in on in PM Urine by source source source Test data data data strip Ketones NEGATIV NEG mg/dL No No Sep 5 E informa informa 2017 [Presen tion in tion in 5:50 PM ce] in source source Urine data data by Automat ed test strip Mucus 2+ NEG No Abnorma No Sep 5 [Presen informa l informa 2017 ce] in tion in tion in 5:50 PM Urine source source sedimen data data t by Light microsc opy Nitrite NEGATIV NEG No No No Sep 5 E informa informa informa 2016 [Presen tion in tion in tion in 5:50 PM ce] in source source source Urine data data data by Test strip pH of 5.0 - 8.5 No Normal No Sep 5 Urine informati informati 2017 5:50 on in on in PM source source data data Protein NEG mg/dL No No Sep 5 [Mass/vol informati informati 2017 5:50 ume] in on in on in PM Urine by source source Automated data data test strip Specific 1.005 - No Normal No Sep 5 gravity 1.030 informati informati 2016 5:50 of Urine on in on in PM source source data data Urobili 0.2 NEG E.U./dL No No Sep 5 nogen informa informa 2016 [Presen tion in tion in 5:50 PM ce] in source source Urine data data by Test strip Magnesium [Moles/volume] in Unspecified specimen Observa Value Referen Units Interpr Notes Date tion ce etation Range Magnesium 1.4 - 2.2 mg/dL High No May 16 informati 2017 6:00 [Moles/vo on in AM lume] in source Unspecifi data ed specimen Protein [Mass/time] in 24 hour Urine Observa Value Referen Units Interpr Notes Date tion ce etation Range Collected by nurse? N Hold specimen in OE? Y Creatinin No HOURS No No May 14 e renal informati informati informati 2017 6:20 clearance on in on in on in PM in source source source unspecifi data data data ed time Protein 40 - 90 mg/24_HR High No May 14 [Mass/vol informati 2016 6:20 ume] in on in PM 24 hour source Urine data Volume of 600 - mL High No May 14 Urine 1600 informati 2016 6:20 on in PM source data Blood type & Indirect antibody screen panel in Blood Observa Value Referen Units Interpr Notes Date tion ce etation Range Blood NEGATIV NEGATIV No No No May 14 group E E informa informa informa 2017 antibod tion in tion in tion in 5:25 PM y source source source screen data data data [Presen ce] in Serum or Plasma Rh POSITIV No No No No May 14 [Type] E informa informa informa informa 2017 in tion in tion in tion in tion in 5:25 PM Blood source source source source data data data data ABO O No No No No May 14 group informa informa informa informa 2017 [Type] tion in tion in tion in tion in 5:25 PM in source source source source Blood data data data data Basic metabolic panel in Blood Observa Value Referen Units Interpr Notes Date ce etation Range Urea 7 - 18 mg/dL Low No May 14 nitrogen informati 2016 5:25 [Mass/vol on in PM ume] in source Serum or data Plasma Calcium 8.5 - mg/dL Normal No May 14 [Mass/vol 10.1 informati 2016 5:25 ume] in on in PM Serum or source Plasma data Chloride 98 - 107 mmoL/L Normal No May 14 [Moles/vo informati 2016 5:25 lume] in on in PM Serum or source Plasma data Carbon 21.0 - mmoL/L Normal No May 14 dioxide, 32.0 informati 2016 5:25 total on in PM [Moles/vo source lume] in data Serum or Plasma Creatinin 0.55 - mg/dL Normal No May 14 e 1.02 informati 2016 5:25 [Mass/vol on in PM ume] in source Serum or data Plasma Creatinin 50 - 200 ML/MIN Normal No May 14 e renal informati 2016 5:25 clearance on in PM source predicted data by Cockcroft -Gault formula Estimated 59- ML/MIN No REFERENCE May 14 informati RANGE: 2017 5:25 glomerula on in >60 PM r source ML/MIN/1. filtratio data 73 SQUARE n rate METERSIf (GF this patient is -A merican, then multiply theresult by 1.210. Glucose 74 - 106 mg/dL Normal No May 14 [Mass/vol informati 2016 5:25 ume] in on in PM Serum or source Plasma data Potassium 3.5 - 5.1 mmoL/L Normal No May 14 informati 2016 5:25 [Moles/vo on in PM lume] in source Serum or data Plasma Sodium 136 - 145 mmoL/L Low No May 14 [Moles/vo informati 2016 5:25 lume] in on in PM Serum or source Plasma data Aspartate aminotransferase [Enzymatic activity/volume] in Serum or Plasma Observa Value Referen Units Interpr Notes Date ce etation Range Aspartate 15 - 37 U/L Normal No May 14 inform2016 5:25 aminotran on in PM sferase source [Enzymati data c activity/ volume] in Serum or Plasma Alanine aminotransferase [Enzymatic activity/volume] in Serum or Plasma Observa Value Referen Units Interpr Notes Date ti ce etation Range Alanine 12 - 78 U/L Normal No May 14 aminotran inform2016 5:25 sferase on in PM [Enzymati source c data activity/ volume] in Serum or Plasma Urate [Mass/volume] in Serum or Plasma Observa Value Referen Units Interpr Notes Date ti ce etation Range Urate 2.6 - 7.2 mg/dL Normal No May 14 [Mass/vol inform2016 5:25 ume] in on in PM Serum or source Plasma data CBC W Auto Differential panel in Blood Observa Value Referen Units Interpr Notes Date ti ce etation Range Basophils 0 - 0.2 K/MM3 Normal No May 142016 5:25 [#/volume on in PM ] in source Blood by data Automated count Basophils 0.1 - 2.0 % Normal No May 14 / informati 2016 5:25 leukocyte on in PM s in source Blood by data Automated count Eosinophi 0.0 - 0.4 K/mm3 Normal No May 14 ls 2016 5:25 [#/volume on in PM ] in source Blood by data Automated count Eosinophi 0.1 - % Normal No May 14 ls/100 12.0 inform2016 5:25 leukocyte on in PM s in source Blood by data Automated count Granulocy 1.8 - 7.8 K/mm3 Normal No May 14 remigio inform2016 5:25 [#/volume on in PM ] in source Blood by data Automated count Granulocy 37.0 - % Normal No May 14 remigio/100 80.0 informati 2016 5:25 leukocyte on in PM s in source Blood by data Automated count Hematocri 37.0 - % Low No May 14 t [Volume 47.0 2016 5:25 on in PM Fraction] source of Blood data Hemoglobi 12.2 - g/dL Low No May 14 n 16.2 ati 2016 5:25 [Mass/vol on in PM ume] in source Blood data Lymphocyt 0.7 - 4.5 K/mm3 Normal No May 14 es inform2016 5:25 [#/volume on in PM ] in source Unspecifi data ed specimen by Automated count Lymphocyt 10 - 50.0 % Normal No May 14 inform2016 5:25 [#/volume on in PM ] in source Unspecifi data ed specimen by Automated count Erythrocy 27 - 31.2 pg Normal No May 14 te mean inform2016 5:25 corpuscul on in PM ar source hemoglobi data n [Entitic mass] Erythrocy 31.8 - g/dl Normal No May 14 te mean 35.4 inform2016 5:25 corpuscul on in PM ar source hemoglobi data n concentra tion [Mass/vol ume] by Automated count Erythrocy 82.2 - fl Normal No May 14 te mean 97.8 inform2016 5:25 corpuscul on in PM ar volume source [Entitic data volume] by Automated count Monocytes 0.1 - 1.0 K/mm3 Normal No May 142016 5:25 [#/volume on in PM ] in source Blood by data Automated count Monocytes 1.7 - 9.3 % Normal No May 14 /100 informati 2016 5:25 leukocyte on in PM s in source Blood by data Automated count Platelet 7.4 - fl Normal No May 14 mean 10.4 informati 2016 5:25 volume on in PM [Entitic source volume] data in Blood by Automated count Platelets 142 - 424 K/mm3 Normal No May 142016 5:25 [#/volume on in PM ] in source Blood data Erythrocy 4.2 - 5.4 M/mm3 Low No May 14 remigio informati 2016 5:25 [#/volume on in PM ] in source Amniotic data fluid Erythrocy 11.5 - % Normal No May 14 te 17.5 informati 2016 5:25 distribut on in PM ion width source [Entitic data volume] by Automated count Leukocyte 4.8 - K/MM3 Normal No May 14 s 10.8 informati 2016 5:25 [#/volume on in PM ] in source Blood data Drugs identified in Urine by Screen method Observa Value Referen Units Interpr Notes Date tion ce etation Range Collected by nurse? Y Hold specimen in OE? N Positive urine drug screen samples are stored for 7 days. Contact the Lab if confirmation of positives is needed. Ampheta NEGATIV <1000 ng/mL No No May 14 mine E informa informa 2017 [Presen tion in tion in 4:51 PM ce] in source source Urine data data by Screen method Barbitura <200 ng/mL No No May 14 remigio informati informati 2016 4:51 [Mass/vol on in on in PM ume] in source source Urine by data data Screen method Benzodiaz 200 ng/mL ng/mL No No May 14 epines informati informati 2016 4:51 [Mass/vol on in on in PM ume] in source source Serum or data data Plasma by Screen method Cocaine <300 ng/g No No May 14 [Mass/vol informati informati 2016 4:51 ume] in on in on in PM Unspecifi source source ed data data specimen Methadone <300 ng/mL No No May 14 informati informati 2016 4:51 [Mass/vol on in on in PM ume] in source source Unspecifi data data ed specimen Opiates <300 ng/mL No No May 14 [Mass/vol informati informati 2016 4:51 ume] in on in on in PM Unspecifi source source ed data data specimen Phencycli <25 ng/mL No No May 14 dine informati informati 2016 4:51 [Mass/vol on in on in PM ume] in source source Unspecifi data data ed specimen 11-Hydr NEGATIV <50 ng/mL No No May 14 oxy E informa informa 2017 delta-9 tion in tion in 4:51 PM source source tetrahy data data drocann abinol [Presen ce] in Unspeci fied specime n Drugs identified in Urine by Screen method Observa Value Referen Units Interpr Notes Date tion ce etation Range Collected by nurse? Y Hold specimen in OE? N Positive urine drug screen samples are stored for 7 days. Contact the Lab if confirmation of positives is needed. Ampheta NEGATIV <1000 ng/mL No No Mar 20 mine E informa informa 2016 [Presen tion in tion in 10:15 ce] in source source AM Urine data data by Screen method Barbitura <200 ng/mL No No Mar 20 remigio informati informati 2016 [Mass/vol on in on in 10:15 AM ume] in source source Urine by data data Screen method Benzodiaz 200 ng/mL ng/mL No No Mar 20 epines informati informati 2016 [Mass/vol on in on in 10:15 AM ume] in source source Serum or data data Plasma by Screen method Cocaine <300 ng/g No No Mar 20 [Mass/vol informati informati 2016 ume] in on in on in 10:15 AM Unspecifi source source ed data data specimen Methadone <300 ng/mL No No Mar 20 informati informati 2016 [Mass/vol on in on in 10:15 AM ume] in source source Unspecifi data data ed specimen Opiates <300 ng/mL No No Mar 20 [Mass/vol informati informati 2016 ume] in on in on in 10:15 AM Unspecifi source source ed data data specimen Phencycli <25 ng/mL No No Mar 20 dine informati informati 2016 [Mass/vol on in on in 10:15 AM ume] in source source Unspecifi data data ed specimen 11-Hydr NEGATIV <50 ng/mL No No Mar 20 oxy E informa informa 2017 delta-9 tion in tion in 10:15 source source AM tetrahy data data drocann abinol [Presen ce] in Unspeci fied specime n Urinalysis dipstick W Reflex Microscopic panel in Urine Observa Value Referen Units Interpr Notes Date tion ce etation Range Collected by nurse? Y Hold specimen in OE? N Appeara SL CLEAR No No No Mar 20 nce of CLOUDY informa informa informa 2017 Urine tion in tion in tion in 10:15 source source source AM data data data Bacteri 4+ O No No No Mar 20 a informa informa informa 2016 [Presen tion in tion in tion in 10:15 ce] in source source source AM Urine data data data sedimen t by Light microsc opy Bilirub NEGATIV NEG No No No Mar 20 in E informa informa informa 2016 [Presen tion in tion in tion in 10:15 ce] in source source source AM Urine data data data by Test strip Erythro TRACE-I NEG No No No Mar 20 cytes NTACT informa informa informa 2016 [Presen tion in tion in tion in 10:15 ce] in source source source AM Urine data data data Color YELLOW YELLOW No No No Mar 20 of informa informa informa 2017 Urine tion in tion in tion in 10:15 source source source AM data data data Glucose NEG No No No Mar 20 [Mass/vol informati informati informati 2017 ume] in on in on in on in 10:15 AM Urine by source source source Test data data data strip Ketones NEGATIV NEG mg/dL No No Mar 20 E informa informa 2017 [Presen tion in tion in 10:15 ce] in source source AM Urine data data by Automat ed test strip Mucus 1+ NEG No Abnorma No Mar 20 [Presen informa l informa 2017 ce] in tion in tion in 10:15 Urine source source AM sedimen data data t by Light microsc opy Mucus 3+ OCC No No No Mar 20 [Presen informa informa informa 2017 ce] in tion in tion in tion in 10:15 Urine source source source AM sedimen data data data t by Light microsc opy Nitrite NEGATIV NEG No No No Mar 20 E informa informa informa 2016 [Presen tion in tion in tion in 10:15 ce] in source source source AM Urine data data data by Test strip pH of 5.0 - 8.5 No Normal No Mar 20 Urine informati informati 2017 on in on in 10:15 AM source source data data Protein NEG mg/dL High No Mar 20 [Mass/vol informati 2017 ume] in on in 10:15 AM Urine by source Automated data test strip Erythro OCC 0 rbc/hpf No No Mar 20 cytes informa informa 2016 [Presen tion in tion in 10:15 ce] in source source AM Urine data data sedimen t by Light microsc opy Specific 1.005 - No Normal No Mar 20 gravity 1.030 informati informati 2017 of Urine on in on in 10:15 AM source source data data Epithel 20-50 0 - 5 #/hpf No No Mar 20 ial informa informa 2017 cells.s tion in tion in 10:15 quamous source source AM data data [Presen ce] in Urine sedimen t by Microsc opy high power field Urobili 0.2 NEG E.U./dL No No Mar 20 nogen informa informa 2017 [Presen tion in tion in 10:15 ce] in source source AM Urine data data by Test strip Leukocy [10 O wbc/hpf No No Mar 20 remigio wbc/hpf informa informa 2016 [#/volu ; 20 tion in tion in 10:15 me] in wbc/hpf source source AM Urine ] data data Urinalysis dipstick W Reflex Microscopic panel in Urine Observa Value Referen Units Interpr Notes Date tion ce etation Range Collected by nurse? Y Hold specimen in OE? N Appeara SL CLEAR No No No Mar 20 nce of CLOUDY informa informa informa 2017 Urine tion in tion in tion in 10:15 source source source AM data data data Bilirub NEGATIV NEG No No No Mar 20 in E informa informa informa 2016 [Presen tion in tion in tion in 10:15 ce] in source source source AM Urine data data data by Test strip Erythro TRACE-I NEG No No No Mar 20 cytes NTACT informa informa informa 2016 [Presen tion in tion in tion in 10:15 ce] in source source source AM Urine data data data Color YELLOW YELLOW No No No Mar 20 of informa informa informa 2017 Urine tion in tion in tion in 10:15 source source source AM data data data Glucose NEG No No No Mar 20 [Mass/vol informati informati informati 2016 ume] in on in on in on in 10:15 AM Urine by source source source Test data data data strip Ketones NEGATIV NEG mg/dL No No Mar 20 E informa informa 2016 [Presen tion in tion in 10:15 ce] in source source AM Urine data data by Automat ed test strip Mucus 1+ NEG No Abnorma No Mar 20 [Presen informa l informa 2016 ce] in tion in tion in 10:15 Urine source source AM sedimen data data t by Light microsc opy Nitrite NEGATIV NEG No No No Mar 20 E informa informa informa 2016 [Presen tion in tion in tion in 10:15 ce] in source source source AM Urine data data data by Test strip pH of 5.0 - 8.5 No Normal No Mar 20 Urine informati informati 2017 on in on in 10:15 AM source source data data Protein NEG mg/dL High No Mar 20 [Mass/vol informati 2016 ume] in on in 10:15 AM Urine by source Automated data test strip Specific 1.005 - No Normal No Mar 20 gravity 1.030 informati informati 2016 of Urine on in on in 10:15 AM source source data data Urobili 0.2 NEG E.U./dL No No Mar 20 nogen informa informa 2016 [Presen tion in tion in 10:15 ce] in source source AM Urine data data by Test strip Glucose [Presence] in Urine by Test strip --1 hour post 75 g glucose PO Observa Value Referen Units Interpr Notes Date tion ce etation Range Glucose No mg/dL No No Mar 01 [Mass/vol informati informati informati 2016 3:47 ume] in on in on in on in PM Serum or source source source Plasma data data data --1 hour post dose glucose Glucose NEGATIV No mg/ml No No Mar 01 E informa informa informa 2016 [Presen tion in tion in tion in 3:47 PM ce] in source source source Urine data data data by Test strip CBC W Auto Differential panel in Blood Observa Value Referen Units Interpr Notes Date tion ce etation Range Basophils 0 - 0.2 K/MM3 Normal No Mar 01 informati 2016 3:47 [#/volume on in PM ] in source Blood by data Automated count Basophils 0.1 - 2.0 % Normal No Mar 01 informati 2016 3:47 leukocyte on in PM s in source Blood by data Automated count Eosinophi 0.0 - 0.4 K/mm3 Normal No Mar 01 ls informati 2016 3:47 [#/volume on in PM ] in source Blood by data Automated count Eosinophi 0.1 - % Normal No Mar 01 ls/100 12.0 informati 2016 3:47 leukocyte on in PM s in source Blood by data Automated count Granulocy 1.8 - 7.8 K/mm3 Normal No Mar 01 remigio informati 2016 3:47 [#/volume on in PM ] in source Blood by data Automated count Granulocy 37.0 - % Normal No Mar 01 remigio/100 80.0 informati 2016 3:47 leukocyte on in PM s in source Blood by data Automated count Hematocri 37.0 - % Low No Mar 01 t [Volume 47.0 informati 2017 3:47 on in PM Fraction] source of Blood data Hemoglobi 12.2 - g/dL Low No Feb 12 n 16.2 informati 2017 3:47 [Mass/vol on in PM ume] in source Blood data Lymphocyt 0.7 - 4.5 K/mm3 Normal No Feb 12 es informati 2017 3:47 [#/volume on in PM ] in source Unspecifi data ed specimen by Automated count Lymphocyt 10 - 50.0 % Normal No Feb 12 es informati 2016 3:47 [#/volume on in PM ] in source Unspecifi data ed specimen by Automated count Erythrocy 27 - 31.2 pg Normal No Feb 12 te mean informati 2017 3:47 corpuscul on in PM ar source hemoglobi data n [Entitic mass] Erythrocy 31.8 - g/dl Normal No Mar 01 te mean 35.4 informati 2017 3:47 corpuscul on in PM ar source hemoglobi data n concentra tion [Mass/vol ume] by Automated count Erythrocy 82.2 - fl Normal No Mar 01 te mean 97.8 informati 2016 3:47 corpuscul on in PM ar volume source [Entitic data volume] by Automated count Monocytes 0.1 - 1.0 K/mm3 Normal No Feb 12 informati 2017 3:47 [#/volume on in PM ] in source Blood by data Automated count Monocytes 1.7 - 9.3 % Normal No Jag 12 /100 informati 2017 3:47 leukocyte on in PM s in source Blood by data Automated count Platelet 7.4 - fl Low No Mar 01 mean 10.4 informati 2017 3:47 volume on in PM [Entitic source volume] data in Blood by Automated count Platelets 142 - 424 K/mm3 Normal No Feb 12 informati 2017 3:47 [#/volume on in PM ] in source Blood data Erythrocy 4.2 - 5.4 M/mm3 Low No Feb 12 remigio informati 2017 3:47 [#/volume on in PM ] in source Amniotic data fluid Erythrocy 11.5 - % Normal No Feb 12 te 17.5 informati 2017 3:47 distribut on in PM ion width source [Entitic data volume] by Automated count Leukocyte 4.8 - K/MM3 Normal No Feb 12 s 10.8 informati 2016 3:47 [#/volume on in PM ] in source Blood data Treponema pallidum IgG Ab [Presence] in Serum by Immunoassay Observa Value Referen Units Interpr Notes Date tion ce etation Range COLLECT C3974 No No No No May 09 OR informa informa informa informa 2013 tion in tion in tion in tion in 4:30 PM source source source source data data data data ETHNICI WHITE No No No No May 09 TY informa informa informa informa 2013 tion in tion in tion in tion in 4:30 PM source source source source data data data data PURPOSE DIAGNOS No No No No May 09 OF TIC informa informa informa informa 2013 EXAM tion in tion in tion in tion in 4:30 PM source source source source data data data data SPECIME BLOOD No No No No May 09 N informa informa informa informa 2013 SOURCE tion in tion in tion in tion in 4:30 PM source source source source data data data data CHART NA No No No No May 09 NUMBER informa informa informa informa 2013 tion in tion in tion in tion in 4:30 PM source source source source data data data data Trepone NON-GIA No No No METHOD May 09 [address] informa informa informa OF 2013 pallidu tion in tion in tion in ANALYSI 4:30 PM m IgG source source source S: Ab data data data EIANORM [Presen AL ce] in RANGE: Serum NON-GIA by CTIVE\. Immunoa br\This ssay report contain s patient informa tion that must be protect ed in accorda nce with the Health Insuran ce Portabi lity and Account ability Act. Treponema pallidum IgG Ab [Presence] in Serum by Immunoassay Observa Value Referen Units Interpr Notes Date tion ce etation Range COLLECT C3974 No No No No May 09 OR informa informa informa informa 2013 tion in tion in tion in tion in 4:30 PM source source source source data data data data ETHNICI WHITE No No No No May 09 TY informa informa informa informa 2013 tion in tion in tion in tion in 4:30 PM source source source source data data data data PURPOSE DIAGNOS No No No No May 09 OF TIC informa informa informa informa 2013 EXAM tion in tion in tion in tion in 4:30 PM source source source source data data data data SPECIME BLOOD No No No No May 09 N informa informa informa informa 2013 SOURCE tion in tion in tion in tion in 4:30 PM source source source source data data data data CHART NA No No No No May 09 NUMBER informa informa informa informa 2013 tion in tion in tion in tion in 4:30 PM source source source source data data data data Trepone Pending No No No \.br\May 09 ma informa informa informa is 2013 pallidu tion in tion in tion in report 4:30 PM m IgG source source source contain Ab data data data s [Presen patient ce] in Serum informa by gen Immunoa that ssay must be protect ed in accorda nce with the Health Insuran ce Portabi lity and Account ability Act. CHLAMYDIA AND GONORRHEA TESTING Observa Value Referen Units Interpr Notes Date tion ce etation Range COLLECT C3819 No No No No May 03 OR informa informa informa informa 2013 tion in tion in tion in tion in 9:10 AM source source source source data data data data ETHNICI WHITE, No No No No May 03 TY NON-HIS informa informa informa informa 2013 PANIC tion in tion in tion in tion in 9:10 AM source source source source data data data data KIT 11-30-2 No No No No May 03 EXPIRAT 013 informa informa informa informa 2013 ION tion in tion in tion in tion in 9:10 AM DATE source source source source data data data data SYMPTOM NO No No No No May 03 S informa informa informa informa 2013 tion in tion in tion in tion in 9:10 AM source source source source data data data data REASON REVISIT No No No No May 03 FOR /ANNUAL informa informa informa informa 2013 REQUEST FAMILY tion in tion in tion in tion in 9:10 AM source source source source PLANNIN data data data data G VISIT SPECIME URINE No No No No May 03 N informa informa informa informa 2013 SOURCE tion in tion in tion in tion in 9:10 AM source source source source data data data data PREGNAN NO No No No No May 03 T informa informa informa informa 2013 tion in tion in tion in tion in 9:10 AM source source source source data data data data CHART N/A No No No No May 03 NUMBER informa informa informa informa 2013 tion in tion in tion in tion in 9:10 AM source source source source data data data data Chlamyd POSITIV No No No NEGATIV May 03 ia E informa informa informa E 2013 trachom tion in tion in tion in RESULT= 9:10 AM atis source source source WITHIN rRNA data data data NORMAL [Presen ce] in LIMITSP Unspeci OSITIVE fied specime RESULT= n by Probe & ABNORMA target LEQUIVO ANDRÉS amplifi RESULT= cation method INDETER MINATEU NSATISF ACTORY RESULT= INVALID Neisser NEGATIV No No No NEGATIV May 03 ia E informa informa informa E 2013 gonorrh tion in tion in tion in RESULT= 9:10 AM oeae source source source WITHIN rRNA data data data NORMAL [Presen ce] in LIMITSP Unspeci OSITIVE fied specime RESULT= n by Probe & ABNORMA target LEQUIVO ANDRÉS amplifi RESULT= cation method INDETER MINATEU NSATISF ACTORY RESULT= INVALID THE APTIMA COMBO 2 ASSAY IS NOT INTENDE D FOR THE EVALUAT ION OF SUSPECT EDSEXUA L ABUSE OR FOR OTHER MEDICO- LEGAL INDICAT IONS. FOR THOSE PATIENT S FORWHOM A FALSE POSITIV E RESULT MAY HAVE ADVERSE PSYCHO- SOCIAL IMPACT, THE [facility] MMENDS RETESTI NG.\.br \This report contain s patient informa tion that must be protect ed in accorda nce with the Health Insuran ce Portabi lity and Account ability Act. CHLAMYDIA AND GONORRHEA TESTING Observa Value Referen Units Interpr Notes Date tion ce etation Range COLLECT C3819 No No No No May 03 OR informa informa informa informa 2012 tion in tion in tion in tion in 9:10 AM source source source source data data data data ETHNICI WHITE, No No No No May 03 TY NON-HIS informa informa informa informa 2012 PANIC tion in tion in tion in tion in 9:10 AM source source source source data data data data KIT 11-30-2 No No No No May 03 EXPIRAT 013 informa informa informa informa 2013 ION tion in tion in tion in tion in 9:10 AM DATE source source source source data data data data SYMPTOM NO No No No No May 03 S informa informa informa informa 2013 tion in tion in tion in tion in 9:10 AM source source source source data data data data REASON REVISIT No No No No May 03 FOR /ANNUAL informa informa informa informa 2013 REQUEST FAMILY tion in tion in tion in tion in 9:10 AM source source source source PLANNIN data data data data G VISIT SPECIME URINE No No No No May 03 N informa informa informa informa 2013 SOURCE tion in tion in tion in tion in 9:10 AM source source source source data data data data PREGNAN NO No No No No May 03 T informa informa informa informa 2013 tion in tion in tion in tion in 9:10 AM source source source source data data data data CHART N/A No No No No May 03 NUMBER informa informa informa informa 2013 tion in tion in tion in tion in 9:10 AM source source source source data data data data Chlamyd Pending No No No No May 03 ia informa informa informa informa 2013 trachom tion in tion in tion in tion in 9:10 AM atis source source source source rRNA data data data data [Presen ce] in Unspeci fied specime n by Probe & target amplifi cation method Neisser Pending No No No \.br\May 03 ia informa informa informa is 2013 gonorrh tion in tion in tion in report 9:10 AM oeae source source source contain rRNA data data data s [Presen patient ce] in Unspeci informa fied tion specime that n by must be Probe & target protect ed in amplifi accorda cation nce method with the Health Insuran ce Portabi lity and Account ability Act. CHLAMYDIA AND GONORRHEA TESTING Observa Value Referen Units Interpr Notes Date tion ce etation Range COLLECT C3819 No No No No Apr 13 OR informa informa informa informa 2012 tion in tion in tion in tion in 3:40 PM source source source source data data data data ETHNICI WHITE, No No No No Apr 13 TY NON-HIS informa informa informa informa 2012 PANIC tion in tion in tion in tion in 3:40 PM source source source source data data data data KIT 06/2012 No No No No Apr 13 EXPIRAT informa informa informa informa 2012 ION tion in tion in tion in tion in 3:40 PM DATE source source source source data data data data SYMPTOM NO No No No No Apr 13 S informa informa informa informa 2012 tion in tion in tion in tion in 3:40 PM source source source source data data data data REASON REVISIT No No No No Apr 13 FOR /ANNUAL informa informa informa informa 2012 REQUEST FAMILY tion in tion in tion in tion in 3:40 PM source source source source PLANNIN data data data data G VISIT SPECIME URINE No No No No Apr 13 N informa informa informa informa 2012 SOURCE tion in tion in tion in tion in 3:40 PM source source source source data data data data PREGNAN NO No No No No Apr 13 T informa informa informa informa 2012 tion in tion in tion in tion in 3:40 PM source source source source data data data data CHART N/A No No No No Apr 13 NUMBER informa informa informa informa 2012 tion in tion in tion in tion in 3:40 PM source source source source data data data data Chlamyd NEGATIV No No No NEGATIV Apr 13 ia E informa informa informa E 2012 trachom tion in tion in tion in RESULT= 3:40 PM atis source source source WITHIN rRNA data data data NORMAL [Presen ce] in LIMITSP Unspeci OSITIVE fied specime RESULT= n by Probe & ABNORMA target LEQUIVO ANDRÉS amplifi RESULT= cation method INDETER MINATEU NSATISF ACTORY RESULT= INVALID Neisser NEGATIV No No No NEGATIV Apr 13 ia E informa informa informa E 2012 gonorrh tion in tion in tion in RESULT= 3:40 PM oeae source source source WITHIN rRNA data data data NORMAL [Presen ce] in LIMITSP Unspeci OSITIVE fied specime RESULT= n by Probe & ABNORMA target LEQUIVO ANDRÉS amplifi RESULT= cation method INDETER MINATEU NSATISF ACTORY RESULT= INVALID THE APTIMA COMBO 2 ASSAY IS NOT INTENDE D FOR THE EVALUAT ION OF SUSPECT EDSEXUA L ABUSE OR FOR OTHER MEDICO- LEGAL INDICAT IONS. FOR THOSE PATIENT S FORWHOM A FALSE POSITIV E RESULT MAY HAVE ADVERSE PSYCHO- SOCIAL IMPACT, [facility] MMENDS RETESTI NG.\.br \This report contain s patient informa tion that must be protect ed in accorda nce with the Health Insuran ce Portabi lity and Account ability Act. CHLAMYDIA AND GONORRHEA TESTING Observa Value Referen Units Interpr Notes Date tion ce etation Range COLLECT C3819 No No No No Apr 13 OR informa informa informa informa 2012 tion in tion in tion in tion in 3:40 PM source source source source data data data data ETHNICI WHITE, No No No No Apr 13 TY NON-HIS informa informa informa informa 2012 PANIC tion in tion in tion in tion in 3:40 PM source source source source data data data data KIT 06/2012 No No No No Apr 13 EXPIRAT informa informa informa informa 2012 ION tion in tion in tion in tion in 3:40 PM DATE source source source source data data data data SYMPTOM NO No No No No Apr 13 S informa informa informa informa 2012 tion in tion in tion in tion in 3:40 PM source source source source data data data data REASON REVISIT No No No No Apr 13 FOR /ANNUAL informa informa informa informa 2012 REQUEST FAMILY tion in tion in tion in tion in 3:40 PM source source source source PLANNIN data data data data G VISIT SPECIME URINE No No No No Apr 13 N informa informa informa informa 2012 SOURCE tion in tion in tion in tion in 3:40 PM source source source source data data data data PREGNAN NO No No No No Apr 13 T informa informa informa informa 2012 tion in tion in tion in tion in 3:40 PM source source source source data data data data CHART N/A No No No No Apr 13 NUMBER informa informa informa informa 2012 tion in tion in tion in tion in 3:40 PM source source source source data data data data Chlamyd Pending No No No No Apr 13 ia informa informa informa informa 2012 trachom tion in tion in tion in tion in 3:40 PM atis source source source source rRNA data data data data [Presen ce] in Unspeci fied specime n by Probe & target amplifi cation method Neisser Pending No No No \.br\Apr 13 ia informa informa informa is 2012 gonorrh tion in tion in tion in report 3:40 PM oeae source source source contain rRNA data data data s [Presen patient ce] in Unspeci informa fied tion specime that n by must be Probe & target protect ed in amplifi accorda cation nce method with the Health Insuran ce Portabi lity and Account ability Act.
--- OUTSIDE RECORDS SUMMARY | 2017-06-26 17:18 | External Medical Summary Rpt ---
[...] MAY HAVE ADVERSE PSYCHO- SOCIAL IMPACT, [facility] MMENDS RETESTI NG.\.br \This report contain s [...]
== END 2017-05-26 09:30 | disposition home or self-care (01) ==
LOC: OB 16:58
PROVIDERS: Nurse Practitioner Obstetrics & Gynecology; Obstetrics & Gynecology
DX: O13.3 Gestational [pregnancy-induced] hypertension without significant proteinuria, third trimester (principal); Z3A.37 37 weeks gestation of pregnancy
CPT/HCPCS: G0378

== ENCOUNTER 2017-06-01 01:54 | Inpatient (IN) | payer BC, MEDICAID ==
[~2017-06-01] VITALS: Ht 152.4 cm; Wt 81.2 kg
[2017-06-01 05:23] VITALS: BP 129/93
[2017-06-01 06:02] LABS: HEMOGLOBIN 11.1 g/dL (12.2-16.2); LYMPH # 2.7 K/mm3 (0.7-4.5); LYMPH % 28.4 % (10-50.0)
[2017-06-01 06:37] LABS: ABO BLOOD TYPE O; RH BLOOD TYPE POSITIVE
--- NOTE | 2017-06-01 07:05 | ACUTE CARE PROGRESS NOTE (QUA) ---
Progress Notes Subjective Date 06/01/17 Time 0630 Assessment/Plan This inpt stay is expected to cross 2 MNs from start of care Yes (ob DELIVERY) Comments: This 22-year-old 1, para 0, AB 0 white female with signs and symptoms of preeclampsia is admitted at 38 and 4/7 weeks for induction. Her current blood pressure is 132/93. DTRs are normal. -induced hypertension labs are consistent with preeclampsia. She has been on labetalol at home, and has been hospitalized on more than one occasion. On admission, her cervix is 4 cm, completely effaced, with the presenting vertex at -1 station. An amniotomy reveals clear fluid, and an internal monitor has been placed. The patient is on magnesium sulfate and intravenous Pitocin has been begun. Plan is for an epidural and vaginal delivery. at 0705
--- NOTE | 2017-06-01 07:05 | ACUTE CARE PROGRESS NOTE (QUA) ---
Progress Notes Subjective Date 06/01/17 Time 0705 Note Cervix is now 5 cm, completely effaced, with the presenting vertex at -1 station. Contractions are still irregular. Assessment/Plan This inpt stay is expected to cross 2 MNs from start of care Yes (ob DELIVERY) at 0705
[2017-06-01 07:15] VITALS: BP 128/98
[2017-06-01 07:49] LABS: URINE BILIRUBIN - DIPSTICK NEGATIVE (NEG); URINE BLOOD NEGATIVE (NEG)
[2017-06-01 08:04] LABS: AMPHETAMINES/METAMPHETAMINES NEGATIVE ng/mL (<1000)
--- NOTE | 2017-06-01 08:14 | ACUTE CARE PROGRESS NOTE (QUA) ---
Progress Notes Subjective Date 06/01/17 Time 0813 Note Epidural is now in situ. Blood pressure is good on magnesium sulfate. Cervix now completely effaced, 6-7 cm, -1 vertex. Assessment/Plan This inpt stay is expected to cross 2 MNs from start of care Yes (ob DELIVERY) at 0813
[2017-06-01 08:46] LABS: URINE BILIRUBIN - DIPSTICK NEGATIVE (NEG); URINE BLOOD NEGATIVE (NEG)
[2017-06-01 09:44] LABS: URINE SQUAMOUS CELLS OCC #/hpf (0-5)
--- NOTE | 2017-06-01 10:32 | ACUTE CARE PROGRESS NOTE (QUA) ---
Progress Notes Subjective Date 06/01/17 Time 1031 Note Cervix is now completely effaced, 8 cm, with a presenting vertex at -1 station. The baby has looked somewhat flat on the monitor and has been turned several times to try to enhance variability. Going to do an amnioinfusion in the hopes of ultimately accomplishing a vaginal delivery. Assessment/Plan This inpt stay is expected to cross 2 MNs from start of care Yes (ob DELIVERY) at 1032
--- NOTE | 2017-06-01 13:01 | ACUTE CARE PROGRESS NOTE (QUA) ---
Progress Notes Subjective Date 06/01/17 Time 1301 Note Cervix is now completely effaced, a rim, at 0 station. Assessment/Plan This inpt stay is expected to cross 2 MNs from start of care Yes (ob DELIVERY) at 1301
--- NOTE | 2017-06-01 15:18 | ACUTE CARE PROGRESS NOTE (QUA) ---
Progress Notes Subjective Date 06/01/17 Time 1517 Note Cervix is now completely effaced, anterior lip, presenting vertex at 0 station. The anterior lip is getting somewhat edematous. Plan is to observe. Assessment/Plan This inpt stay is expected to cross 2 MNs from start of care Yes (ob DELIVERY) at 1519
--- NOTE | 2017-06-01 17:20 | Delivery Note ---
Delivery note Delivery date: 06/01/17 Delivery time: 1650 Anesthesia: Epidural Was labor medically induced? Yes (-induced hypertension) Method for inducing labor: Oxytocin Gestational age in weeks: 38 weeks Days: 4 days Delivery prior to 39 weeks? Yes (-induced hypertension) Justification for delivery: Gestational Hypertension Sex: female score at one minute: 8 at 5 minutes: 9 Type of suction: bulb AF: Clear LAC or MLE: MLE Delivery procedure: Forceps Delivery Delivery of placenta: spontaneous Clinical note This 22-year-old 1, now para 1, AB 0 white female was admitted at 38-4/7 weeks with signs and symptoms of preeclampsia. Treated with intravenous magnesium sulfate. At the time of admission she was 3-4 cm dilated and having irregular contractions. She was augmented with intravenous Pitocin, and labored under labor epidural, which worked well. An amniotomy revealed clear fluid, and an internal monitor was in place. At one point there was some decreased variability and an amnioinfusion was carried out, after which there was no evidence of decreased variability nor decelerations. The patient's blood pressure remained stable throughout her labor. She was slowly, but steadily, to completion at 1600 hrs. and pushed ineffectively. She was ultimately delivered by outlet forceps over a midline episiotomy. There was no nuchal cord, nor was there any meconium. The baby's naso-and oropharynx were bulb suctioned, and the baby cried spontaneously on the perineum, as was delivered. The cord was clamped and cut, 3 vessels were noted to be within the cord, and cord blood was obtained. Cord pH was 7.35. The baby was handed into the arms of the attending vice president global digital marketing, Dr. Lucia, was signed Apgars of 8 at 1 minute and 9 at 5 minutes to this 7 lbs. 9 oz., 18.5 inch female infant, born at 1651. The placenta delivered spontaneously, intact, at 1653, making the total time in labor 10 hours 23 minutes. The uterus was inspected and was felt to be clean, and was involuting well, with IV Pitocin running. The episiotomy was closed in the usual fashion, in layers, with 2-0 Vicryl. The rectovaginal septum was intact at the close of the procedure. Shortly after delivery, there was a large gush of blood, and the patient's blood pressure dropped to 86/52. With uterine size and oxygen, it recovered well. Intravenous Pitocin was opened up and intramuscular Methergine was administered. At this point the patient is stable, with a hemoglobin and hematocrit pending. Overall, the patient tolerated the procedure well, and was recovered in good condition. Her blood type is O positive. Her rubella titer is immune. She plans to breast-feed. Intravenous magnesium sulfate will be continued for the time being. at 7424
[2017-06-01 18:27] LABS: HEMOGLOBIN 10.1 g/dL (12.2-16.2)
[2017-06-01 20:16] VITALS: BP 129/84
[2017-06-02 07:28] VITALS: BP 123/77
[2017-06-02 09:28] VITALS: BP 116/74
[2017-06-02 10:47] VITALS: BP 126/85
[2017-06-02 11:39] VITALS: BP 122/77
--- NOTE | 2017-06-02 12:41 | ACUTE CARE PROGRESS NOTE (QUA) ---
Progress Notes Subjective Date 06/02/17 Time 1238 Note This is day number 1. The patient is afebrile. Vital signs stable. Blood pressure in the 130s over 70s. DTRs are normal. Her hemoglobin dropped to 8.0 g, but is now rebounded to 9.0 g. She is clinically stable. Uterine fundus involuting well. Lochia normal. Episiotomy is healing well. Patient is breast- feeding well. Plan is to discontinue her mag sulfate and observe. Assessment/Plan This inpt stay is expected to cross 2 MNs from start of care Yes (ob DELIVERY) at 1240
[2017-06-02 20:30] VITALS: BP 128/77
--- NOTE | 2017-06-03 06:05 | ACUTE CARE PROGRESS NOTE (QUA) ---
Progress Notes Subjective Date 06/03/17 Time 0603 Note This is day number 2. The patient is afebrile. Her vital signs are stable. She is off her magnesium sulfate, and her blood pressure is 117/77. DTRs are normal. Lochia normal. Uterine fundus has involuted well. She is breast- feeding well. She will be discharged today. Assessment/Plan This inpt stay is expected to cross 2 MNs from start of care Yes (ob DELIVERY) at 0605
--- NOTE | 2017-06-03 06:12 | DISCHARGE SUMMARY STANDARD ---
Discharge Summary Date of admission: 06/01/17 Date of discharge: 06/03/17 Patient condition: Stable Discharge diagnosis (es): 1. Term intrauterine , delivered. 2. Preeclampsia. 3. Anemia. Hospital course: This 22-year-old 1, now para 1, AB 0 white female was admitted at 38-4/7 weeks with signs and symptoms of preeclampsia. She was treated with intravenous magnesium sulfate and induced with intravenous Pitocin. On admission, her cervix was 4 cm dilated. She went slowly, but steadily, to completion, laboring under labor epidural (which worked well). She had difficulty pushing, and was delivered by outlet forceps over a midline episiotomy. The baby was an 8/9 , 7 lbs. 9 oz., 18.5 inch female , born at 1651 on 06/01/17. The baby is breast-feeding, and has done well. , the patient has done well. She is eating and ambulating, and has had a bowel movement. Her episiotomy is healing well. Her lochia is normal. Her uterine fundus has involuted well. Her DTRs are normal. She has been weaned off her magnesium sulfate, and her current blood pressure is 117/77. Her hemoglobin dropped from 11.1 g on admission to a low of 8.0 g, but rebounded to 9.0 g, at which she is clinically stable. She is discharged home on the second day on iron 3 times a day and vitamins once a day. She is to use Tylenol and Motrin, as needed for pain. She is not a smoker. She is given appropriate instructions as to diet, exercise, and perineal care, and she is to return the office in 2 weeks for follow-up. Her blood type is O positive. Her rubella titer is immune. at 0611
== END 2017-06-03 12:55 | disposition home or self-care (01) | DRG 774 ==
LOC: OB 01:54
PROVIDERS: Obstetrics & Gynecology
PROC: 0W8NXZZ Division of Female Perineum, External Approach (ICD-10-PCS; principal; 2017-06-01)
PROC: 10D07Z3 Extraction of Products of Conception, Low Forceps, Via Natural or Artificial Opening (ICD-10-PCS; principal; 2017-06-01)
DX: O13.9 Gestational [pregnancy-induced] hypertension without significant proteinuria, unspecified trimester (principal); O72.1 Other immediate postpartum hemorrhage; Z37.0 Single live birth; Z3A.38 38 weeks gestation of pregnancy
CPT/HCPCS: C1758